=== PATIENT | female | born 1950 | race Caucasian/White ===

== ENCOUNTER 2018-08-06 18:58 | Inpatient (IN) | payer BC ==
[2018-08-06] MEDS ORDERED: ACETAMINOPHEN 325 MG TAB PO (21:00)
[2018-08-06] MEDS ORDERED: ALBUTEROL/IPRATROPIUM (NEB) 3 ML AMP HHN (21:00)
[2018-08-06] MEDS ORDERED: HYDROCODONE/APAP (5/325) TAB PO (21:00)
[2018-08-06] MEDS ORDERED: ONDANSETRON 4 MG INJ IV (21:00)
[2018-08-06] MEDS ORDERED: NACL 0.9% 3 ML SYG IV (21:00)
[2018-08-06] MEDS ORDERED: VANCOMYCIN IV PER PHARMACY XX (21:30)
[2018-08-06] MEDS: SOD CHLORIDE 0.9% 1,000 ML IV (21:30)
[2018-08-06] MEDS: HEPARIN 5,000 UNIT/1 ML VIAL SC (22:59)
[2018-08-06] MEDS ORDERED: GLUCOSE GEL 15 GRAM TUBE PO ×2 (23:00)
[2018-08-06] MEDS ORDERED: DEXTROSE 50% 50 ML SYRINGE IV ×2 (23:00)
[2018-08-06] MEDS ORDERED: GLUCOSE GEL 15 GRAM TUBE BUCCAL (23:00)
[2018-08-06] MEDS ORDERED: GLUCAGON 1 MG INJ IM (23:00)
[2018-08-06] MEDS: INSULIN ASPART [NOVOLOG] 3 ML PEN SC (23:42)
[2018-08-06] MEDS: ACCU-CHEK XX (23:47)
[2018-08-07] MEDS: VANCOMYCIN 750 MG (PMX) 250 ML IVPB ×2 (02:51→15:16)
[2018-08-07 05:31] LABS: ADD MAN DIFF? NO
[2018-08-07 05:34] LABS: WHITE BLOOD COUNT 10.7 10^3/ul (4.8-10.8)
[2018-08-07 05:34] LABS: BASOPHIL # 0.1 10^3/ul (0.0-0.1); BASOPHILS % 0.5 % (0.0-2.0); EOSINOPHILS # 0.3 10^3/ul (0.0-0.5); EOSINOPHILS % 2.6 % (0.0-7.0); HEMOGLOBIN 10.5 g/dl (12.0-16.0); LYMPHOCYTES # 2.6 10^3/ul (0.8-2.9); LYMPHOCYTES % 23.9 % (15.0-51.0); MEAN CORPUSCULAR HEMOGLOBIN 28.5 pg (29.0-33.0); MEAN CORPUSCULAR HGB CONC 31.8 g/dl (32.0-37.0); MEAN CORPUSCULAR VOLUME 89.7 fl (82.0-101.0); MEAN PLATELET VOLUME 9.2 fl (7.4-10.4); MONOCYTES % 9.4 % (0.0-11.0); NEUTROPHIL # 6.8 10^3/ul (1.6-7.5); NEUTROPHILS % 63.2 % (39.0-77.0); PLATELET COUNT 607 10^3/UL (140-415); RED BLOOD COUNT 3.68 10^6/ul (4.20-5.40); RED CELL DISTRIBUTION WIDTH 15.4 % (11.5-14.5)
[2018-08-07 05:52] LABS: ALANINE AMINOTRANSFERASE 10 IU/L (13-69); ALBUMIN 3.7 g/dl (3.3-4.9); ALBUMIN/GLOBULIN RATIO 1.15; ALKALINE PHOSPHATASE 101 IU/L (42-121); ANION GAP 9 (5-13); ASPARTATE AMINO TRANSFERASE 26 IU/L (15-46); BILIRUBIN,INDIRECT 0.3 mg/dl (0-1.1); BILIRUBIN,TOTAL 0.3 mg/dl (0.2-1.3); BLOOD UREA NITROGEN 15 mg/dl (7-20); CALCIUM 9.5 mg/dl (8.4-10.2); CARBON DIOXIDE 23 mmol/L (21-31); CHLORIDE 109 mmol/L (97-110); CHOL/HDL RATIO 2.3 RATIO; CHOLESTEROL 118 mg/dl (100-200); CREATININE 0.93 mg/dl (0.44-1.00); Estimated GFR 60 mL/min (>60); GLUCOSE 167 mg/dl (70-220); HDL CHOLESTEROL 50 mg/dl (35-98); LDL CHOLESTEROL,CALCULATED 44 mg/dl; MAGNESIUM 1.5 mg/dl (1.7-2.5); PHOSPHORUS 3.5 mg/dl (2.5-4.9); POTASSIUM 4.2 mmol/L (3.5-5.1); SODIUM 141 mmol/L (135-144); TOTAL PROTEIN 6.9 g/dl (6.1-8.1); TRIGLYCERIDES 121 mg/dl (0-149)
[2018-08-07] MEDS ORDERED: OCULAR LUBRICANT 3.5 GM OPH OINT BOTH EYES (07:30)
[2018-08-07] MEDS ORDERED: PROPYLENE GLYCOL/PEG 5 ML OPHTH DROPS BOTH EYES ×2 (07:30→09:08)
[2018-08-07] MEDS: INSULIN ASPART [NOVOLOG] 3 ML PEN SC ×5 (07:35→20:29)
[2018-08-07 07:55] LABS: HEMOGLOBIN A1C 6.6 % (0-5.9)
[2018-08-07] MEDS: PANTOPRAZOLE (EC) 40 MG TAB PO (07:56)
[2018-08-07] MEDS: SOD CHLORIDE 0.9% 1,000 ML IV (10:34)
[2018-08-07] MEDS: CEFEPIME 1GM/50 ML (PMX) 50 ML IVPB ×2 (10:53→20:14)
[2018-08-07] MEDS: ASPIRIN (EC) 81 MG TAB PO (10:54)
[2018-08-07] MEDS: CLOPIDOGREL 75 MG TAB PO (10:54)
[2018-08-07] MEDS: METOPROLOL (XL) 25 MG TAB PO ×2 (10:54→20:15)
[2018-08-07] MEDS: FISH OIL 1,000 MG CAP PO (10:55)
[2018-08-07] MEDS: HEPARIN 5,000 UNIT/1 ML VIAL SC (11:16)
[2018-08-07] MEDS ORDERED: ALBUTEROL HFA 8 GM INHALER INH (12:30)
[2018-08-07] MEDS: MAGNESIUM OXIDE 400 MG TAB PO ×2 (12:30→20:14)
[2018-08-07] MEDS: ATORVASTATIN 20 MG TAB PO (20:14)
[2018-08-08] MEDS: ACCU-CHEK XX (02:00)
[2018-08-08 02:27] LABS: VANCOMYCIN,TROUGH 19.7 ug/ml (10.0-20.0)
[2018-08-08] MEDS: LEVOTHYROXINE 50 MCG TAB PO (06:20)
[2018-08-08] MEDS: PANTOPRAZOLE (EC) 40 MG TAB PO (06:23)
[2018-08-08 06:38] LABS: ADD MAN DIFF? NO
[2018-08-08 06:40] LABS: BASOPHILS % 0.5 % (0.0-2.0); EOSINOPHILS # 0.3 10^3/ul (0.0-0.5); EOSINOPHILS % 2.9 % (0.0-7.0); HEMATOCRIT 30.3 % (37.0-47.0); HEMOGLOBIN 9.7 g/dl (12.0-16.0); LYMPHOCYTES # 1.9 10^3/ul (0.8-2.9); LYMPHOCYTES % 21.6 % (15.0-51.0); MEAN CORPUSCULAR VOLUME 90.4 fl (82.0-101.0); MEAN PLATELET VOLUME 9.2 fl (7.4-10.4); MONOCYTE # 1.1 10^3/ul (0.3-0.9); MONOCYTES % 11.9 % (0.0-11.0); NEUTROPHIL # 5.6 10^3/ul (1.6-7.5); NEUTROPHILS % 62.8 % (39.0-77.0); PLATELET COUNT 541 10^3/UL (140-415); RED BLOOD COUNT 3.35 10^6/ul (4.20-5.40); RED CELL DISTRIBUTION WIDTH 15.3 % (11.5-14.5)
[2018-08-08 06:40] LABS: WHITE BLOOD COUNT 8.9 10^3/ul (4.8-10.8)
[2018-08-08 07:05] LABS: IRON 36 ug/dl (35-150)
[2018-08-08 07:14] LABS: % IRON SATURATION 13 % SAT (22-52); INR 0.93; PROTIME 12.6 Sec (11.9-14.9); TOTAL IRON BINDING CAPACITY 280 ug/dl (241-421)
[2018-08-08 07:15] LABS: LIPASE 68 U/L (23-300)
[2018-08-08 07:15] LABS: ALANINE AMINOTRANSFERASE 25 IU/L (13-69); ALBUMIN 3.1 g/dl (3.3-4.9); ALBUMIN/GLOBULIN RATIO 0.96; ALKALINE PHOSPHATASE 94 IU/L (42-121); ANION GAP 9 (5-13); ASPARTATE AMINO TRANSFERASE 32 IU/L (15-46); BILIRUBIN,INDIRECT 0.3 mg/dl (0-1.1); BILIRUBIN,TOTAL 0.3 mg/dl (0.2-1.3); BLOOD UREA NITROGEN 11 mg/dl (7-20); CALCIUM 9.2 mg/dl (8.4-10.2); CARBON DIOXIDE 23 mmol/L (21-31); CHLORIDE 112 mmol/L (97-110); CREATININE 0.83 mg/dl (0.44-1.00); Estimated GFR > 60 mL/min (>60); GLUCOSE 121 mg/dl (70-220); POTASSIUM 4.3 mmol/L (3.5-5.1); SODIUM 144 mmol/L (135-144); TOTAL PROTEIN 6.3 g/dl (6.1-8.1)
[2018-08-08 07:28] LABS: LACTIC ACID 1.1 mmol/L (0.5-2.0)
[2018-08-08] MEDS: INSULIN ASPART [NOVOLOG] 3 ML PEN SC ×4 (07:55→20:27)
[2018-08-08 08:23] LABS: FOLATE > 20.0 ng/ml (2.8-20.0)
[2018-08-08 08:29] LABS: C-REACTIVE PROTEIN 1.8 mg/dl (0.0-0.9)
[2018-08-08] MEDS: VANCOMYCIN 500 MG (PMX) 100 ML IVPB ×2 (08:52→20:43)
[2018-08-08] MEDS: FISH OIL 1,000 MG CAP PO (08:53)
[2018-08-08] MEDS: METOPROLOL (XL) 25 MG TAB PO ×2 (08:53→20:36)
[2018-08-08] MEDS: CLOPIDOGREL 75 MG TAB PO (08:53)
[2018-08-08] MEDS: LACTOBACILLUS RHAMNOSUS CAP PO ×2 (08:54→20:34)
[2018-08-08] MEDS: LISINOPRIL 5 MG TAB PO (08:54)
[2018-08-08] MEDS: ASPIRIN (EC) 81 MG TAB PO (08:54)
[2018-08-08] MEDS: MAGNESIUM OXIDE 400 MG TAB PO ×2 (08:54→20:35)
[2018-08-08] MEDS: ENOXAPARIN 30 MG/0.3 ML SYG SC (08:56)
[2018-08-08] MEDS: CEFEPIME 1GM/50 ML (PMX) 50 ML IVPB (10:28)
[2018-08-08] MEDS: ATORVASTATIN 20 MG TAB PO (20:35)
[2018-08-08] MEDS: HYDROCODONE/APAP (5/325) TAB PO (20:42)
[2018-08-09] MEDS: ACCU-CHEK XX (01:40)
[2018-08-09] MEDS: PANTOPRAZOLE (EC) 40 MG TAB PO (06:10)
[2018-08-09] MEDS: LEVOTHYROXINE 50 MCG TAB PO (06:10)
[2018-08-09] MEDS: INSULIN ASPART [NOVOLOG] 3 ML PEN SC ×2 (08:22→12:00)
[2018-08-09] MEDS: ENOXAPARIN 30 MG/0.3 ML SYG SC (08:22)
[2018-08-09] MEDS: MAGNESIUM OXIDE 400 MG TAB PO (08:25)
[2018-08-09] MEDS: LACTOBACILLUS RHAMNOSUS CAP PO (08:25)
[2018-08-09] MEDS: FISH OIL 1,000 MG CAP PO (08:25)
[2018-08-09] MEDS: ASPIRIN (EC) 81 MG TAB PO (08:25)
[2018-08-09] MEDS: CLOPIDOGREL 75 MG TAB PO (08:25)
[2018-08-09] MEDS: LISINOPRIL 5 MG TAB PO (08:26)
[2018-08-09] MEDS: METOPROLOL (XL) 25 MG TAB PO (08:26)
[2018-08-09] MEDS: VANCOMYCIN 500 MG (PMX) 100 ML IVPB (09:50)
[2018-08-09] MEDS ORDERED: TRIMETHOPRIM/SULFAMETHOX (DS) TAB PO (21:00)
== END 2018-08-09 15:00 | disposition home or self-care (01) | DRG 602 ==
LOC: TEL 08-07 08:22 → MS3 18:58 → PP2 08-08 19:31
PROVIDERS: Internal Medicine
DX: L03.116 Cellulitis of left lower limb (principal); G92 Toxic encephalopathy; I10 Essential (primary) hypertension; E03.9 Hypothyroidism, unspecified; I87.8 Other specified disorders of veins; E11.40 Type 2 diabetes mellitus with diabetic neuropathy, unspecified; E88.81 Metabolic syndrome and other insulin resistance; D64.9 Anemia, unspecified; E11.51 Type 2 diabetes mellitus with diabetic peripheral angiopathy without gangrene; E11.36 Type 2 diabetes mellitus with diabetic cataract; R63.0 Anorexia; T36.8X5A Adverse effect of other systemic antibiotics, initial encounter; Y92.230 Patient room in hospital as the place of occurrence of the external cause; B35.1 Tinea unguium; Z86.73 Personal history of transient ischemic attack (TIA), and cerebral infarction without residual deficits
CPT/HCPCS: 70450; 80053; 80061; 80202; 82746; 82962; 83036; 83540; 83605; 83690; 83735; 84100; 84443; 85025; 85610; 85651; 86140; 93922

== ENCOUNTER 2018-08-30 03:11 | Inpatient (IN) | payer BC ==
[2018-08-30 04:32] LABS: ADD MAN DIFF? NO
[2018-08-30 04:35] LABS: WHITE BLOOD COUNT 10.4 10^3/ul (4.8-10.8)
[2018-08-30 04:35] LABS: BASOPHIL # 0.1 10^3/ul (0.0-0.1); BASOPHILS % 0.6 % (0.0-2.0); EOSINOPHILS # 0.3 10^3/ul (0.0-0.5); EOSINOPHILS % 2.6 % (0.0-7.0); HEMATOCRIT 28.9 % (37.0-47.0); HEMOGLOBIN 9.4 g/dl (12.0-16.0); LYMPHOCYTES # 2.1 10^3/ul (0.8-2.9); LYMPHOCYTES % 19.9 % (15.0-51.0); MEAN CORPUSCULAR HGB CONC 32.5 g/dl (32.0-37.0); MEAN CORPUSCULAR VOLUME 89.2 fl (82.0-101.0); MEAN PLATELET VOLUME 8.8 fl (7.4-10.4); MONOCYTE # 1.1 10^3/ul (0.3-0.9); MONOCYTES % 10.2 % (0.0-11.0); NEUTROPHIL # 6.9 10^3/ul (1.6-7.5); NEUTROPHILS % 66.3 % (39.0-77.0); PLATELET COUNT 581 10^3/UL (140-415); RED BLOOD COUNT 3.24 10^6/ul (4.20-5.40); RED CELL DISTRIBUTION WIDTH 15.2 % (11.5-14.5)
[2018-08-30] MEDS: FUROSEMIDE 20 MG INJ IV ×4 (04:36→17:42)
[2018-08-30] MEDS: morphine 4 MG/ML VIAL IV (04:58)
[2018-08-30] MEDS: ONDANSETRON 4 MG INJ IV (04:58)
[2018-08-30 05:03] LABS: ALANINE AMINOTRANSFERASE 23 IU/L (13-69); ALBUMIN 3.8 g/dl (3.3-4.9); ALKALINE PHOSPHATASE 118 IU/L (42-121); ANION GAP 10 (5-13); ASPARTATE AMINO TRANSFERASE 49 IU/L (15-46); BILIRUBIN,INDIRECT 0.4 mg/dl (0-1.1); BILIRUBIN,TOTAL 0.4 mg/dl (0.2-1.3); BLOOD UREA NITROGEN 28 mg/dl (7-20); C-REACTIVE PROTEIN 2.9 mg/dl (0.0-0.9); CALCIUM 9.5 mg/dl (8.4-10.2); CARBON DIOXIDE 22 mmol/L (21-31); CHLORIDE 105 mmol/L (97-110); Estimated GFR 35 mL/min (>60); GLUCOSE 112 mg/dl (70-220); POTASSIUM 4.7 mmol/L (3.5-5.1); SODIUM 137 mmol/L (135-144); TOTAL PROTEIN 7.6 g/dl (6.1-8.1)
[2018-08-30 05:04] LABS: ADD UMIC NO; UR ASCORBIC ACID NEGATIVE (NEGATIVE); UR BILIRUBIN (Dip) NEGATIVE (NEGATIVE); UR BLOOD (Dip) NEGATIVE (NEGATIVE); UR CLARITY CLEAR (CLEAR); UR COLOR STRAW (YELLOW); UR GLUCOSE (Dip) NEGATIVE (NEGATIVE); UR KETONES (Dip) NEGATIVE (NEGATIVE); UR LEUKOCYTE ESTERASE (Dip) NEGATIVE Leu/ul (NEGATIVE); UR NITRITE (Dip) NEGATIVE (NEGATIVE); UR SPECIFIC GRAVITY (Dip) 1.006 (1.003-1.030); UR TOTAL PROTEIN (Dip) NEGATIVE (NEGATIVE); UR UROBILINOGEN (Dip) NEGATIVE (NEGATIVE)
[2018-08-30 05:12] LABS: B-TYPE NATRIURETIC PEPTIDE 1260 PG/ML (0-125); TROPONIN-I < 0.012 ng/ml (0.000-0.120)
[2018-08-30 05:38] LABS: ERYTHROCYTE SEDIMENTATION RATE 75 mm/Hr (0-30)
[2018-08-30] MEDS: PANTOPRAZOLE (EC) 40 MG TAB PO (06:30)
[2018-08-30] MEDS ORDERED: GLUCAGON 1 MG INJ IM (07:00)
[2018-08-30] MEDS ORDERED: DEXTROSE 50% 50 ML SYRINGE IV (07:00)
[2018-08-30] MEDS ORDERED: GLUCOSE GEL 15 GRAM TUBE BUCCAL (07:00)
[2018-08-30] MEDS ORDERED: GLUCOSE GEL 15 GRAM TUBE PO ×2 (07:00)
[2018-08-30] MEDS ORDERED: OCULAR LUBRICANT 3.5 GM OPH OINT BOTH EYES (08:00)
[2018-08-30] MEDS ORDERED: PROPYLENE GLYCOL/PEG 5 ML OPHTH DROPS BOTH EYES (08:00)
[2018-08-30] MEDS ORDERED: ALBUTEROL HFA 8 GM INHALER INH (09:00)
[2018-08-30] MEDS: CLOPIDOGREL 75 MG TAB PO (09:43)
[2018-08-30] MEDS: ASPIRIN (EC) 81 MG TAB PO (09:43)
[2018-08-30] MEDS: LEVOTHYROXINE 50 MCG TAB PO (09:43)
[2018-08-30] MEDS: INSULIN ASPART [NOVOLOG] 3 ML PEN SC ×4 (09:51→20:28)
[2018-08-30] MEDS: ENOXAPARIN 30 MG/0.3 ML SYG SC (09:51)
[2018-08-30] MEDS: METOPROLOL (XL) 25 MG TAB PO ×2 (10:01→20:28)
[2018-08-30] MEDS: CYANOCOBALAMIN 100 MCG TAB PO (10:01)
[2018-08-30] MEDS: LORAZEPAM 2 MG INJ IV (12:30)
[2018-08-30] MEDS: POLYETHYLENE GLYCOL 17 GM PACKET PO (13:25)
[2018-08-30] MEDS: ATORVASTATIN 20 MG TAB PO (20:32)
[2018-08-30] MEDS: ALPRAZOLAM 0.25 MG TAB PO (20:32)
[2018-08-31] MEDS: ACCU-CHEK XX (01:01)
[2018-08-31] MEDS: PANTOPRAZOLE (EC) 40 MG TAB PO (05:36)
[2018-08-31] MEDS: FUROSEMIDE 20 MG INJ IV ×2 (05:36→17:05)
[2018-08-31] MEDS: LEVOTHYROXINE 50 MCG TAB PO (06:08)
[2018-08-31 06:42] LABS: ADD MAN DIFF? NO
[2018-08-31 06:50] LABS: BASOPHIL # 0.1 10^3/ul (0.0-0.1); BASOPHILS % 0.8 % (0.0-2.0); EOSINOPHILS # 0.3 10^3/ul (0.0-0.5); HEMATOCRIT 31.5 % (37.0-47.0); HEMOGLOBIN 9.8 g/dl (12.0-16.0); LYMPHOCYTES # 1.7 10^3/ul (0.8-2.9); LYMPHOCYTES % 21.4 % (15.0-51.0); MEAN CORPUSCULAR HGB CONC 31.1 g/dl (32.0-37.0); MEAN PLATELET VOLUME 9.1 fl (7.4-10.4); MONOCYTE # 0.9 10^3/ul (0.3-0.9); MONOCYTES % 10.8 % (0.0-11.0); NEUTROPHILS % 62.6 % (39.0-77.0); PLATELET COUNT 668 10^3/UL (140-415); RED CELL DISTRIBUTION WIDTH 15.2 % (11.5-14.5)
[2018-08-31 07:11] LABS: ALANINE AMINOTRANSFERASE 18 IU/L (13-69); ALBUMIN 3.6 g/dl (3.3-4.9); ALBUMIN/GLOBULIN RATIO 1.05; ALKALINE PHOSPHATASE 109 IU/L (42-121); ANION GAP 7 (5-13); ASPARTATE AMINO TRANSFERASE 44 IU/L (15-46); BILIRUBIN,INDIRECT 0.4 mg/dl (0-1.1); BILIRUBIN,TOTAL 0.4 mg/dl (0.2-1.3); BLOOD UREA NITROGEN 26 mg/dl (7-20); CALCIUM 9.8 mg/dl (8.4-10.2); CARBON DIOXIDE 26 mmol/L (21-31); CHLORIDE 106 mmol/L (97-110); Estimated GFR 37 mL/min (>60); GLUCOSE 105 mg/dl (70-220); MAGNESIUM 1.9 mg/dl (1.7-2.5); PHOSPHORUS 5.1 mg/dl (2.5-4.9); POTASSIUM 5.1 mmol/L (3.5-5.1); SODIUM 139 mmol/L (135-144)
[2018-08-31 07:21] LABS: HEMOGLOBIN A1C 6.3 % (0-5.9)
[2018-08-31] MEDS: INSULIN ASPART [NOVOLOG] 3 ML PEN SC ×4 (07:48→20:34)
[2018-08-31] MEDS: CYANOCOBALAMIN 100 MCG TAB PO (08:31)
[2018-08-31] MEDS: METOPROLOL (XL) 25 MG TAB PO ×2 (08:31→20:35)
[2018-08-31] MEDS: ASPIRIN (EC) 81 MG TAB PO (08:31)
[2018-08-31] MEDS: POLYETHYLENE GLYCOL 17 GM PACKET PO (08:31)
[2018-08-31] MEDS: CLOPIDOGREL 75 MG TAB PO (08:31)
[2018-08-31] MEDS: ENOXAPARIN 30 MG/0.3 ML SYG SC (08:33)
[2018-08-31] MEDS: ATORVASTATIN 20 MG TAB PO (20:34)
[2018-08-31] MEDS: ALPRAZOLAM 0.25 MG TAB PO (21:57)
[2018-09-01] MEDS: ACCU-CHEK XX (01:16)
[2018-09-01] MEDS: ZOLPIDEM 5 MG TAB PO (02:57)
[2018-09-01 05:48] LABS: ADD MAN DIFF? NO
[2018-09-01 05:55] LABS: BASOPHILS % 0.3 % (0.0-2.0); EOSINOPHILS # 0.2 10^3/ul (0.0-0.5); EOSINOPHILS % 1.9 % (0.0-7.0); HEMATOCRIT 32.2 % (37.0-47.0); HEMOGLOBIN 10.4 g/dl (12.0-16.0); LYMPHOCYTES # 2.1 10^3/ul (0.8-2.9); MEAN CORPUSCULAR HEMOGLOBIN 28.5 pg (29.0-33.0); MEAN CORPUSCULAR HGB CONC 32.3 g/dl (32.0-37.0); MEAN CORPUSCULAR VOLUME 88.2 fl (82.0-101.0); MEAN PLATELET VOLUME 9.1 fl (7.4-10.4); MONOCYTE # 0.9 10^3/ul (0.3-0.9); MONOCYTES % 9.7 % (0.0-11.0); NEUTROPHIL # 5.6 10^3/ul (1.6-7.5); NEUTROPHILS % 63.8 % (39.0-77.0); PLATELET COUNT 680 10^3/UL (140-415); RED BLOOD COUNT 3.65 10^6/ul (4.20-5.40); RED CELL DISTRIBUTION WIDTH 14.9 % (11.5-14.5)
[2018-09-01 05:55] LABS: WHITE BLOOD COUNT 8.9 10^3/ul (4.8-10.8)
[2018-09-01] MEDS: PANTOPRAZOLE (EC) 40 MG TAB PO (06:22)
[2018-09-01] MEDS: LEVOTHYROXINE 50 MCG TAB PO (06:22)
[2018-09-01] MEDS: FUROSEMIDE 20 MG INJ IV ×2 (06:23→17:17)
[2018-09-01 06:32] LABS: ANION GAP 12 (5-13); BLOOD UREA NITROGEN 28 mg/dl (7-20); CARBON DIOXIDE 22 mmol/L (21-31); CHLORIDE 104 mmol/L (97-110); CREATININE 1.41 mg/dl (0.44-1.00); Estimated GFR 37 mL/min (>60); GLUCOSE 143 mg/dl (70-220); POTASSIUM 4.5 mmol/L (3.5-5.1); SODIUM 138 mmol/L (135-144)
[2018-09-01] MEDS: INSULIN ASPART [NOVOLOG] 3 ML PEN SC ×4 (08:00→21:00)
[2018-09-01] MEDS: ASPIRIN (EC) 81 MG TAB PO (08:35)
[2018-09-01] MEDS: CLOPIDOGREL 75 MG TAB PO (08:35)
[2018-09-01] MEDS: METOPROLOL (XL) 25 MG TAB PO ×2 (08:36→21:33)
[2018-09-01] MEDS: CYANOCOBALAMIN 100 MCG TAB PO (08:36)
[2018-09-01] MEDS: POLYETHYLENE GLYCOL 17 GM PACKET PO (08:37)
[2018-09-01] MEDS: ENOXAPARIN 30 MG/0.3 ML SYG SC (08:40)
[2018-09-01] MEDS: ACETAMINOPHEN 325 MG TAB PO (17:25)
[2018-09-01] MEDS: MAGNESIUM HYDROXIDE 30ML CUP PO (21:28)
[2018-09-01] MEDS: ATORVASTATIN 20 MG TAB PO (21:28)
[2018-09-01] MEDS: DOCUSATE SODIUM 100 MG CAP PO (21:29)
[2018-09-01] MEDS: DIPHENHYDRAMINE 25 MG CAP PO (21:29)
[2018-09-01] MEDS: ALPRAZOLAM 0.25 MG TAB PO (21:29)
[2018-09-02] MEDS: ACCU-CHEK XX (01:13)
[2018-09-02] MEDS: FUROSEMIDE 20 MG INJ IV ×2 (05:34→18:00)
[2018-09-02] MEDS: PANTOPRAZOLE (EC) 40 MG TAB PO (05:35)
[2018-09-02] MEDS: LEVOTHYROXINE 50 MCG TAB PO (05:35)
[2018-09-02 05:57] LABS: ADD MAN DIFF? NO
[2018-09-02 06:01] LABS: BASOPHILS % 0.2 % (0.0-2.0); EOSINOPHILS % 0.1 % (0.0-7.0); HEMATOCRIT 26.7 % (37.0-47.0); HEMOGLOBIN 8.9 g/dl (12.0-16.0); LYMPHOCYTES # 1.6 10^3/ul (0.8-2.9); LYMPHOCYTES % 10.3 % (15.0-51.0); MEAN CORPUSCULAR HEMOGLOBIN 29.2 pg (29.0-33.0); MEAN CORPUSCULAR HGB CONC 33.3 g/dl (32.0-37.0); MEAN CORPUSCULAR VOLUME 87.5 fl (82.0-101.0); MEAN PLATELET VOLUME 9.3 fl (7.4-10.4); MONOCYTE # 1.4 10^3/ul (0.3-0.9); MONOCYTES % 9.1 % (0.0-11.0); NEUTROPHIL # 11.9 10^3/ul (1.6-7.5); NEUTROPHILS % 79.8 % (39.0-77.0); PLATELET COUNT 605 10^3/UL (140-415); RED BLOOD COUNT 3.05 10^6/ul (4.20-5.40); RED CELL DISTRIBUTION WIDTH 15.2 % (11.5-14.5)
[2018-09-02 06:30] LABS: ANION GAP 10 (5-13); BLOOD UREA NITROGEN 33 mg/dl (7-20); CALCIUM 9.4 mg/dl (8.4-10.2); CARBON DIOXIDE 23 mmol/L (21-31); CHLORIDE 105 mmol/L (97-110); CREATININE 1.32 mg/dl (0.44-1.00); Estimated GFR 40 mL/min (>60); GLUCOSE 175 mg/dl (70-220); POTASSIUM 4.3 mmol/L (3.5-5.1); SODIUM 138 mmol/L (135-144)
[2018-09-02] MEDS: INSULIN ASPART [NOVOLOG] 3 ML PEN SC ×4 (08:53→20:55)
[2018-09-02] MEDS: ENOXAPARIN 30 MG/0.3 ML SYG SC (08:53)
[2018-09-02] MEDS: METOPROLOL (XL) 25 MG TAB PO ×2 (08:54→20:54)
[2018-09-02] MEDS: DOCUSATE SODIUM 100 MG CAP PO ×2 (08:54→20:54)
[2018-09-02] MEDS: CLOPIDOGREL 75 MG TAB PO (08:54)
[2018-09-02] MEDS: ASPIRIN (EC) 81 MG TAB PO (08:54)
[2018-09-02] MEDS: CYANOCOBALAMIN 100 MCG TAB PO (08:55)
[2018-09-02] MEDS: POLYETHYLENE GLYCOL 17 GM PACKET PO (08:56)
[2018-09-02] MEDS: ATORVASTATIN 20 MG TAB PO (20:54)
[2018-09-02] MEDS: ALPRAZOLAM 0.25 MG TAB PO (21:01)
[2018-09-03] MEDS: ACCU-CHEK XX (01:45)
[2018-09-03] MEDS: PANTOPRAZOLE (EC) 40 MG TAB PO (06:14)
[2018-09-03] MEDS: LEVOTHYROXINE 50 MCG TAB PO (06:14)
[2018-09-03] MEDS: FUROSEMIDE 20 MG INJ IV (06:15)
[2018-09-03] MEDS: POLYETHYLENE GLYCOL 17 GM PACKET PO (08:47)
[2018-09-03] MEDS: CLOPIDOGREL 75 MG TAB PO (08:48)
[2018-09-03] MEDS: METOPROLOL (XL) 25 MG TAB PO ×2 (08:48→21:00)
[2018-09-03] MEDS: CYANOCOBALAMIN 100 MCG TAB PO (08:48)
[2018-09-03] MEDS: DOCUSATE SODIUM 100 MG CAP PO ×2 (08:48→21:00)
[2018-09-03] MEDS: ASPIRIN (EC) 81 MG TAB PO (08:48)
[2018-09-03] MEDS: INSULIN ASPART [NOVOLOG] 3 ML PEN SC ×4 (08:50→21:19)
[2018-09-03] MEDS: ENOXAPARIN 30 MG/0.3 ML SYG SC (08:52)
[2018-09-03] MEDS: ACETAMINOPHEN 325 MG TAB PO ×2 (11:53→21:17)
[2018-09-03] MEDS: ONDANSETRON 4 MG INJ IV (19:33)
[2018-09-03] MEDS: ZOLPIDEM 5 MG TAB PO (21:17)
[2018-09-03] MEDS: ATORVASTATIN 20 MG TAB PO (21:17)
[2018-09-04] MEDS: ACCU-CHEK XX (02:00)
[2018-09-04] MEDS: ALPRAZOLAM 0.25 MG TAB PO ×2 (03:13→22:03)
[2018-09-04 05:37] LABS: ADD MAN DIFF? NO
[2018-09-04 05:45] LABS: WHITE BLOOD COUNT 10.5 10^3/ul (4.8-10.8)
[2018-09-04 05:45] LABS: BASOPHILS % 0.4 % (0.0-2.0); EOSINOPHILS # 0.2 10^3/ul (0.0-0.5); EOSINOPHILS % 1.8 % (0.0-7.0); HEMATOCRIT 23.9 % (37.0-47.0); HEMOGLOBIN 7.9 g/dl (12.0-16.0); LYMPHOCYTES # 2.3 10^3/ul (0.8-2.9); LYMPHOCYTES % 22.1 % (15.0-51.0); MEAN CORPUSCULAR HEMOGLOBIN 28.6 pg (29.0-33.0); MEAN CORPUSCULAR HGB CONC 33.1 g/dl (32.0-37.0); MEAN CORPUSCULAR VOLUME 86.6 fl (82.0-101.0); MEAN PLATELET VOLUME 9.3 fl (7.4-10.4); MONOCYTE # 1.4 10^3/ul (0.3-0.9); MONOCYTES % 13.3 % (0.0-11.0); NEUTROPHIL # 6.5 10^3/ul (1.6-7.5); NEUTROPHILS % 61.8 % (39.0-77.0); PLATELET COUNT 584 10^3/UL (140-415); RED BLOOD COUNT 2.76 10^6/ul (4.20-5.40); RED CELL DISTRIBUTION WIDTH 15.4 % (11.5-14.5)
[2018-09-04 06:10] LABS: ANION GAP 8 (5-13); BLOOD UREA NITROGEN 37 mg/dl (7-20); CARBON DIOXIDE 21 mmol/L (21-31); CHLORIDE 107 mmol/L (97-110); CREATININE 1.27 mg/dl (0.44-1.00); Estimated GFR 42 mL/min (>60); GLUCOSE 142 mg/dl (70-220); POTASSIUM 4.3 mmol/L (3.5-5.1); SODIUM 136 mmol/L (135-144)
[2018-09-04] MEDS: PANTOPRAZOLE (EC) 40 MG TAB PO (06:26)
[2018-09-04] MEDS: LEVOTHYROXINE 50 MCG TAB PO (06:26)
[2018-09-04 07:27] LABS: ADD UMIC NO; UR ASCORBIC ACID 40 mg/dL (NEGATIVE); UR BILIRUBIN (Dip) NEGATIVE (NEGATIVE); UR BLOOD (Dip) NEGATIVE (NEGATIVE); UR CLARITY CLEAR (CLEAR); UR COLOR YELLOW (YELLOW); UR GLUCOSE (Dip) NEGATIVE (NEGATIVE); UR KETONES (Dip) TRACE mg/dL (NEGATIVE); UR LEUKOCYTE ESTERASE (Dip) NEGATIVE Leu/ul (NEGATIVE); UR NITRITE (Dip) NEGATIVE (NEGATIVE); UR SPECIFIC GRAVITY (Dip) 1.016 (1.003-1.030); UR TOTAL PROTEIN (Dip) NEGATIVE (NEGATIVE); UR UROBILINOGEN (Dip) 1+ mg/dL (NEGATIVE)
[2018-09-04 07:42] LABS: SODIUM,URINE RANDOM 67 mmol/L (30-90)
[2018-09-04 07:42] LABS: CREATININE,URINE RANDOM 71.78 mg/dl (20-320)
[2018-09-04] MEDS: POLYETHYLENE GLYCOL 17 GM PACKET PO (08:33)
[2018-09-04] MEDS: ENOXAPARIN 30 MG/0.3 ML SYG SC (08:35)
[2018-09-04] MEDS: INSULIN ASPART [NOVOLOG] 3 ML PEN SC ×4 (08:35→21:00)
[2018-09-04] MEDS: DOCUSATE SODIUM 100 MG CAP PO ×2 (08:36→21:57)
[2018-09-04] MEDS: CLOPIDOGREL 75 MG TAB PO (08:36)
[2018-09-04] MEDS: ASPIRIN (EC) 81 MG TAB PO (08:36)
[2018-09-04] MEDS: CYANOCOBALAMIN 100 MCG TAB PO (08:36)
[2018-09-04] MEDS: METOPROLOL (XL) 25 MG TAB PO ×2 (08:37→21:58)
[2018-09-04] MEDS: FUROSEMIDE 20 MG INJ IV (08:38)
[2018-09-04] MEDS: AL HYDROX/MG HYDROX/SIMETH 30 ML CUP PO (17:33)
[2018-09-04] MEDS: ATORVASTATIN 20 MG TAB PO (21:57)
[2018-09-05] MEDS: ACCU-CHEK XX (02:00)
[2018-09-05] MEDS: PANTOPRAZOLE (EC) 40 MG TAB PO (05:30)
[2018-09-05] MEDS: LEVOTHYROXINE 50 MCG TAB PO (05:31)
[2018-09-05 05:36] LABS: ADD MAN DIFF? NO
[2018-09-05 05:45] LABS: BASOPHILS % 0.3 % (0.0-2.0); EOSINOPHILS # 0.1 10^3/ul (0.0-0.5); EOSINOPHILS % 1.3 % (0.0-7.0); HEMATOCRIT 27.2 % (37.0-47.0); HEMOGLOBIN 8.8 g/dl (12.0-16.0); LYMPHOCYTES # 2.2 10^3/ul (0.8-2.9); LYMPHOCYTES % 19.8 % (15.0-51.0); MEAN CORPUSCULAR HEMOGLOBIN 28.5 pg (29.0-33.0); MEAN CORPUSCULAR HGB CONC 32.4 g/dl (32.0-37.0); MEAN PLATELET VOLUME 9.4 fl (7.4-10.4); MONOCYTE # 1.3 10^3/ul (0.3-0.9); MONOCYTES % 11.6 % (0.0-11.0); NEUTROPHIL # 7.3 10^3/ul (1.6-7.5); NEUTROPHILS % 66.5 % (39.0-77.0); PLATELET COUNT 662 10^3/UL (140-415); RED BLOOD COUNT 3.09 10^6/ul (4.20-5.40); RED CELL DISTRIBUTION WIDTH 15.7 % (11.5-14.5)
[2018-09-05 06:32] LABS: ANION GAP 9 (5-13); BLOOD UREA NITROGEN 40 mg/dl (7-20); CARBON DIOXIDE 24 mmol/L (21-31); CHLORIDE 104 mmol/L (97-110); CREATININE 1.45 mg/dl (0.44-1.00); Estimated GFR 36 mL/min (>60); GLUCOSE 140 mg/dl (70-220); POTASSIUM 4.4 mmol/L (3.5-5.1); SODIUM 137 mmol/L (135-144)
[2018-09-05] MEDS: FUROSEMIDE 20 MG INJ IV (08:23)
[2018-09-05] MEDS: ASPIRIN (EC) 81 MG TAB PO (08:23)
[2018-09-05] MEDS: DOCUSATE SODIUM 100 MG CAP PO ×2 (08:23→20:32)
[2018-09-05] MEDS: CLOPIDOGREL 75 MG TAB PO (08:24)
[2018-09-05] MEDS: CYANOCOBALAMIN 100 MCG TAB PO (08:24)
[2018-09-05] MEDS: POLYETHYLENE GLYCOL 17 GM PACKET PO (08:24)
[2018-09-05] MEDS: METOPROLOL (XL) 25 MG TAB PO ×2 (08:24→20:41)
[2018-09-05] MEDS: INSULIN ASPART [NOVOLOG] 3 ML PEN SC ×4 (08:25→22:22)
[2018-09-05] MEDS: ENOXAPARIN 30 MG/0.3 ML SYG SC (08:26)
[2018-09-05] MEDS: ACETAMINOPHEN 325 MG TAB PO ×2 (12:11→20:51)
[2018-09-05] MEDS: AL HYDROX/MG HYDROX/SIMETH 30 ML CUP PO (20:31)
[2018-09-05] MEDS: ATORVASTATIN 20 MG TAB PO (20:32)
[2018-09-05] MEDS: ALPRAZOLAM 0.25 MG TAB PO (20:38)
[2018-09-05] MEDS: METOCLOPRAMIDE 10 MG INJ IV (22:25)
[2018-09-06] MEDS: ACCU-CHEK XX (02:00)
[2018-09-06 05:25] LABS: ADD MAN DIFF? NO
[2018-09-06 05:38] LABS: ABNORMAL IP MESSAGE 1; BASOPHILS % 0.3 % (0.0-2.0); EOSINOPHILS # 0.2 10^3/ul (0.0-0.5); EOSINOPHILS % 1.3 % (0.0-7.0); HEMATOCRIT 24.8 % (37.0-47.0); HEMOGLOBIN 8.2 g/dl (12.0-16.0); LYMPHOCYTES # 3.2 10^3/ul (0.8-2.9); LYMPHOCYTES % 23.2 % (15.0-51.0); MEAN CORPUSCULAR HEMOGLOBIN 28.6 pg (29.0-33.0); MEAN CORPUSCULAR HGB CONC 33.1 g/dl (32.0-37.0); MEAN CORPUSCULAR VOLUME 86.4 fl (82.0-101.0); MEAN PLATELET VOLUME 9.6 fl (7.4-10.4); MONOCYTES % 14.5 % (0.0-11.0); NEUTROPHIL # 8.2 10^3/ul (1.6-7.5); PLATELET COUNT 621 10^3/UL (140-415); RED BLOOD COUNT 2.87 10^6/ul (4.20-5.40); RED CELL DISTRIBUTION WIDTH 15.5 % (11.5-14.5)
[2018-09-06 05:38] LABS: WHITE BLOOD COUNT 13.7 10^3/ul (4.8-10.8)
[2018-09-06 05:57] LABS: POSITIVE DIFF @See below
[2018-09-06] MEDS: PANTOPRAZOLE (EC) 40 MG TAB PO (06:00)
[2018-09-06 06:16] LABS: ANION GAP 8 (5-13); BLOOD UREA NITROGEN 47 mg/dl (7-20); CALCIUM 8.7 mg/dl (8.4-10.2); CARBON DIOXIDE 28 mmol/L (21-31); CHLORIDE 99 mmol/L (97-110); CREATININE 1.72 mg/dl (0.44-1.00); Estimated GFR 29 mL/min (>60); GLUCOSE 118 mg/dl (70-220); POTASSIUM 3.7 mmol/L (3.5-5.1); SODIUM 135 mmol/L (135-144)
[2018-09-06] MEDS: INSULIN ASPART [NOVOLOG] 3 ML PEN SC ×4 (08:00→21:00)
[2018-09-06] MEDS: POLYETHYLENE GLYCOL 17 GM PACKET PO (08:09)
[2018-09-06] MEDS: CLOPIDOGREL 75 MG TAB PO (08:09)
[2018-09-06] MEDS: DOCUSATE SODIUM 100 MG CAP PO ×2 (08:09→21:17)
[2018-09-06] MEDS: LEVOTHYROXINE 50 MCG TAB PO (08:10)
[2018-09-06] MEDS: CYANOCOBALAMIN 100 MCG TAB PO (08:10)
[2018-09-06] MEDS: METOPROLOL (XL) 25 MG TAB PO ×2 (08:10→21:17)
[2018-09-06] MEDS: ASPIRIN (EC) 81 MG TAB PO (08:10)
[2018-09-06] MEDS: ENOXAPARIN 30 MG/0.3 ML SYG SC (08:18)
[2018-09-06] MEDS: NACL 0.9% 3 ML SYG IV (09:07)
[2018-09-06] MEDS: SOD CHLORIDE 0.9% 1,000 ML IV (09:07)
[2018-09-06 09:59] LABS: CARCINOEMBRYONIC ANTIGEN 3.9 ng/ml (0.0-5.0)
[2018-09-06] MEDS: ACETAMINOPHEN 325 MG TAB PO (21:17)
[2018-09-06] MEDS: ATORVASTATIN 20 MG TAB PO (21:17)
[2018-09-07] MEDS: ACCU-CHEK XX (01:37)
[2018-09-07 05:49] LABS: ADD MAN DIFF? NO
[2018-09-07] MEDS: PANTOPRAZOLE (EC) 40 MG TAB PO (05:51)
[2018-09-07] MEDS: SOD CHLORIDE 0.9% 1,000 ML IV (05:52)
[2018-09-07 05:58] LABS: ABNORMAL IP MESSAGE 1; BASOPHILS % 0.3 % (0.0-2.0); EOSINOPHILS # 0.1 10^3/ul (0.0-0.5); EOSINOPHILS % 0.8 % (0.0-7.0); HEMATOCRIT 27.8 % (37.0-47.0); LYMPHOCYTES # 2.5 10^3/ul (0.8-2.9); LYMPHOCYTES % 16.9 % (15.0-51.0); MEAN CORPUSCULAR HGB CONC 32.4 g/dl (32.0-37.0); MEAN CORPUSCULAR VOLUME 86.6 fl (82.0-101.0); MEAN PLATELET VOLUME 9.2 fl (7.4-10.4); MONOCYTE # 1.7 10^3/ul (0.3-0.9); MONOCYTES % 11.6 % (0.0-11.0); NEUTROPHIL # 10.1 10^3/ul (1.6-7.5); NEUTROPHILS % 69.8 % (39.0-77.0); PLATELET COUNT 705 10^3/UL (140-415); RED BLOOD COUNT 3.21 10^6/ul (4.20-5.40); RED CELL DISTRIBUTION WIDTH 15.5 % (11.5-14.5)
[2018-09-07 05:58] LABS: WHITE BLOOD COUNT 14.5 10^3/ul (4.8-10.8)
[2018-09-07 06:03] LABS: POSITIVE DIFF @See below
[2018-09-07 06:25] LABS: ANION GAP 10 (5-13); BLOOD UREA NITROGEN 42 mg/dl (7-20); CALCIUM 8.6 mg/dl (8.4-10.2); CARBON DIOXIDE 24 mmol/L (21-31); CHLORIDE 102 mmol/L (97-110); CREATININE 1.15 mg/dl (0.44-1.00); Estimated GFR 47 mL/min (>60); GLUCOSE 160 mg/dl (70-220); POTASSIUM 3.2 mmol/L (3.5-5.1); SODIUM 136 mmol/L (135-144)
[2018-09-07] MEDS: LEVOTHYROXINE 50 MCG TAB PO (06:36)
[2018-09-07] MEDS: INSULIN ASPART [NOVOLOG] 3 ML PEN SC ×5 (08:17→20:47)
[2018-09-07] MEDS: POLYETHYLENE GLYCOL 17 GM PACKET PO ×2 (09:00→09:28)
[2018-09-07] MEDS: METOPROLOL (XL) 25 MG TAB PO ×2 (09:00→20:44)
[2018-09-07] MEDS: ASPIRIN (EC) 81 MG TAB PO (09:27)
[2018-09-07] MEDS: DOCUSATE SODIUM 100 MG CAP PO ×2 (09:28→20:44)
[2018-09-07] MEDS: CYANOCOBALAMIN 100 MCG TAB PO (09:28)
[2018-09-07] MEDS: CLOPIDOGREL 75 MG TAB PO (09:29)
[2018-09-07] MEDS: POTASSIUM CHLORIDE (SR) 20 MEQ TAB PO (09:30)
[2018-09-07] MEDS: ENOXAPARIN 30 MG/0.3 ML SYG SC (09:32)
[2018-09-07 14:57] LABS: CREATININE, RANDOM URINE 71 mg/dL (20-275); MICROALBUMIN 4.1 mg/dL; MICROALBUMIN/CREATININE RATIO 58 (<30)
[2018-09-07] MEDS: ATORVASTATIN 20 MG TAB PO (20:44)
[2018-09-07] MEDS: ALPRAZOLAM 0.25 MG TAB PO (20:54)
[2018-09-07] MEDS: ZOLPIDEM 5 MG TAB PO (22:48)
[2018-09-08] MEDS ORDERED: INSULIN ASPART [NOVOLOG] 3 ML PEN SC ×2 (01:00→21:00)
[2018-09-08] MEDS: INSULIN ASPART [NOVOLOG] 3 ML PEN SC ×5 (01:00→17:00)
[2018-09-08] MEDS: SOD CHLORIDE 0.9% 1,000 ML IV (01:13)
[2018-09-08] MEDS: ACCU-CHEK XX (01:36)
[2018-09-08] MEDS: LEVOTHYROXINE 50 MCG TAB PO (05:22)
[2018-09-08] MEDS: PANTOPRAZOLE (EC) 40 MG TAB PO (05:22)
[2018-09-08 07:49] LABS: ADD MAN DIFF? NO
[2018-09-08 07:53] LABS: BASOPHILS % 0.4 % (0.0-2.0); EOSINOPHILS # 0.1 10^3/ul (0.0-0.5); EOSINOPHILS % 1.3 % (0.0-7.0); HEMATOCRIT 24.5 % (37.0-47.0); LYMPHOCYTES % 18.5 % (15.0-51.0); MEAN CORPUSCULAR HGB CONC 32.7 g/dl (32.0-37.0); MEAN CORPUSCULAR VOLUME 88.8 fl (82.0-101.0); MEAN PLATELET VOLUME 9.1 fl (7.4-10.4); MONOCYTE # 1.3 10^3/ul (0.3-0.9); MONOCYTES % 11.7 % (0.0-11.0); NEUTROPHIL # 7.4 10^3/ul (1.6-7.5); NEUTROPHILS % 67.5 % (39.0-77.0); PLATELET COUNT 658 10^3/UL (140-415); RED BLOOD COUNT 2.76 10^6/ul (4.20-5.40); RED CELL DISTRIBUTION WIDTH 15.5 % (11.5-14.5)
[2018-09-08 08:14] LABS: ANION GAP 8 (5-13); BLOOD UREA NITROGEN 42 mg/dl (7-20); CALCIUM 8.5 mg/dl (8.4-10.2); CARBON DIOXIDE 21 mmol/L (21-31); CHLORIDE 106 mmol/L (97-110); CREATININE 1.01 mg/dl (0.44-1.00); Estimated GFR 54 mL/min (>60); GLUCOSE 171 mg/dl (70-220); POTASSIUM 3.6 mmol/L (3.5-5.1); SODIUM 135 mmol/L (135-144)
[2018-09-08] MEDS: CLOPIDOGREL 75 MG TAB PO (08:38)
[2018-09-08] MEDS: ASPIRIN (EC) 81 MG TAB PO (08:38)
[2018-09-08] MEDS: METOPROLOL (XL) 25 MG TAB PO ×2 (08:38→20:43)
[2018-09-08] MEDS: DOCUSATE SODIUM 100 MG CAP PO ×2 (08:38→20:42)
[2018-09-08] MEDS: POLYETHYLENE GLYCOL 17 GM PACKET PO (08:39)
[2018-09-08] MEDS: ENOXAPARIN 30 MG/0.3 ML SYG SC (08:40)
[2018-09-08] MEDS: CYANOCOBALAMIN 100 MCG TAB PO (09:00)
[2018-09-08] MEDS: ATORVASTATIN 20 MG TAB PO (20:42)
[2018-09-08] MEDS: traZODone 50 MG TAB PO (20:42)
[2018-09-08] MEDS: Insulin NOVOLOG SS MODERATE Algorithm (SS with meals and bedtime) SC (20:45)
[2018-09-08] MEDS: ACETAMINOPHEN 325 MG TAB PO (21:26)
[2018-09-08] MEDS: ALPRAZOLAM 0.25 MG TAB PO (22:23)
[2018-09-09] MEDS: ACCU-CHEK XX (01:59)
[2018-09-09] MEDS: PANTOPRAZOLE (EC) 40 MG TAB PO (06:14)
[2018-09-09] MEDS: LEVOTHYROXINE 50 MCG TAB PO (06:14)
[2018-09-09] MEDS: CLOPIDOGREL 75 MG TAB PO (08:25)
[2018-09-09] MEDS: ASPIRIN (EC) 81 MG TAB PO (08:25)
[2018-09-09] MEDS: DOCUSATE SODIUM 100 MG CAP PO ×2 (08:25→20:48)
[2018-09-09] MEDS: METOPROLOL (XL) 25 MG TAB PO ×2 (08:26→20:48)
[2018-09-09] MEDS: CYANOCOBALAMIN 100 MCG TAB PO (08:26)
[2018-09-09] MEDS: ENOXAPARIN 30 MG/0.3 ML SYG SC (08:28)
[2018-09-09] MEDS: Insulin NOVOLOG SS MODERATE Algorithm (SS with meals and bedtime) SC (08:30)
[2018-09-09] MEDS: POLYETHYLENE GLYCOL 17 GM PACKET PO (08:36)
[2018-09-09 09:24] LABS: ADD MAN DIFF? NO
[2018-09-09 09:25] LABS: BASOPHILS % 0.4 % (0.0-2.0); EOSINOPHILS # 0.2 10^3/ul (0.0-0.5); EOSINOPHILS % 1.8 % (0.0-7.0); HEMATOCRIT 27.2 % (37.0-47.0); HEMOGLOBIN 8.6 g/dl (12.0-16.0); LYMPHOCYTES # 2.2 10^3/ul (0.8-2.9); LYMPHOCYTES % 20.2 % (15.0-51.0); MEAN CORPUSCULAR HEMOGLOBIN 27.9 pg (29.0-33.0); MEAN CORPUSCULAR HGB CONC 31.6 g/dl (32.0-37.0); MEAN CORPUSCULAR VOLUME 88.3 fl (82.0-101.0); MEAN PLATELET VOLUME 9.1 fl (7.4-10.4); MONOCYTE # 1.3 10^3/ul (0.3-0.9); MONOCYTES % 12.1 % (0.0-11.0); NEUTROPHIL # 7.1 10^3/ul (1.6-7.5); NEUTROPHILS % 64.8 % (39.0-77.0); PLATELET COUNT 740 10^3/UL (140-415); RED BLOOD COUNT 3.08 10^6/ul (4.20-5.40); RED CELL DISTRIBUTION WIDTH 15.3 % (11.5-14.5)
[2018-09-09 09:44] LABS: ANION GAP 12 (5-13); BLOOD UREA NITROGEN 41 mg/dl (7-20); CALCIUM 9.1 mg/dl (8.4-10.2); CARBON DIOXIDE 21 mmol/L (21-31); CHLORIDE 106 mmol/L (97-110); CREATININE 0.98 mg/dl (0.44-1.00); Estimated GFR 56 mL/min (>60); GLUCOSE 155 mg/dl (70-220); MAGNESIUM 2.5 mg/dl (1.7-2.5); POTASSIUM 3.7 mmol/L (3.5-5.1); SODIUM 139 mmol/L (135-144)
[2018-09-09 09:44] LABS: PHOSPHORUS 3.4 mg/dl (2.5-4.9)
[2018-09-09] MEDS: MAGNESIUM CITRATE 300 ML BTL PO (10:28)
[2018-09-09 13:15] LABS: ALPHA FETOPROTEIN 0.98 IU/L (0.00-7.21)
[2018-09-09] MEDS: INSULIN ASPART [NOVOLOG] 3 ML PEN SC ×2 (17:03→20:49)
[2018-09-09] MEDS: ALPRAZOLAM 0.25 MG TAB PO (18:50)
[2018-09-09] MEDS: traZODone 50 MG TAB PO (20:48)
[2018-09-09] MEDS: ATORVASTATIN 20 MG TAB PO (20:48)
[2018-09-09] MEDS: LORAZEPAM 2 MG INJ IV (23:02)
[2018-09-10] MEDS: ACCU-CHEK XX (02:00)
[2018-09-10] MEDS: PANTOPRAZOLE (EC) 40 MG TAB PO (06:20)
[2018-09-10] MEDS: LEVOTHYROXINE 50 MCG TAB PO (06:20)
[2018-09-10] MEDS: INSULIN ASPART [NOVOLOG] 3 ML PEN SC ×5 (08:30→20:40)
[2018-09-10] MEDS: POLYETHYLENE GLYCOL 17 GM PACKET PO (08:31)
[2018-09-10] MEDS: ASPIRIN (EC) 81 MG TAB PO (08:31)
[2018-09-10] MEDS: DOCUSATE SODIUM 100 MG CAP PO ×2 (08:31→20:39)
[2018-09-10] MEDS: ENOXAPARIN 30 MG/0.3 ML SYG SC (08:31)
[2018-09-10] MEDS: METOPROLOL (XL) 25 MG TAB PO ×2 (08:32→20:29)
[2018-09-10] MEDS: CYANOCOBALAMIN 100 MCG TAB PO (08:33)
[2018-09-10 08:36] LABS: ADD MAN DIFF? NO
[2018-09-10 08:39] LABS: ABNORMAL IP MESSAGE 1; BASOPHIL # 0.1 10^3/ul (0.0-0.1); BASOPHILS % 0.4 % (0.0-2.0); EOSINOPHILS # 0.2 10^3/ul (0.0-0.5); EOSINOPHILS % 1.2 % (0.0-7.0); HEMATOCRIT 26.2 % (37.0-47.0); HEMOGLOBIN 8.4 g/dl (12.0-16.0); LYMPHOCYTES # 2.7 10^3/ul (0.8-2.9); MEAN CORPUSCULAR HEMOGLOBIN 27.9 pg (29.0-33.0); MEAN CORPUSCULAR HGB CONC 32.1 g/dl (32.0-37.0); MEAN PLATELET VOLUME 9.4 fl (7.4-10.4); MONOCYTE # 1.8 10^3/ul (0.3-0.9); MONOCYTES % 13.5 % (0.0-11.0); NEUTROPHIL # 8.6 10^3/ul (1.6-7.5); NEUTROPHILS % 64.2 % (39.0-77.0); PLATELET COUNT 748 10^3/UL (140-415); RED BLOOD COUNT 3.01 10^6/ul (4.20-5.40); RED CELL DISTRIBUTION WIDTH 15.4 % (11.5-14.5)
[2018-09-10 08:39] LABS: WHITE BLOOD COUNT 13.4 10^3/ul (4.8-10.8)
[2018-09-10] MEDS: CLOPIDOGREL 75 MG TAB PO (08:41)
[2018-09-10 08:45] LABS: POSITIVE DIFF @See below
[2018-09-10 08:55] LABS: INR 0.97
[2018-09-10 08:56] LABS: PARTIAL THROMBOPLASTIN TIME 40.5 Sec (23.0-35.0)
[2018-09-10 09:06] LABS: ANION GAP 8 (5-13); BLOOD UREA NITROGEN 45 mg/dl (7-20); CALCIUM 9.2 mg/dl (8.4-10.2); CARBON DIOXIDE 23 mmol/L (21-31); CHLORIDE 103 mmol/L (97-110); CREATININE 1.13 mg/dl (0.44-1.00); Estimated GFR 48 mL/min (>60); GLUCOSE 211 mg/dl (70-220); POTASSIUM 4.4 mmol/L (3.5-5.1); SODIUM 134 mmol/L (135-144)
[2018-09-10 09:13] LABS: PHOSPHORUS 3.7 mg/dl (2.5-4.9)
[2018-09-10 09:13] LABS: MAGNESIUM 2.7 mg/dl (1.7-2.5)
[2018-09-10] MEDS: SOD CHLORIDE 0.9% 500 ML (16:08)
[2018-09-10] MEDS: FENTAnyl 50 MCG/ML VIAL (16:30)
[2018-09-10] MEDS: LIDOCAINE 1% (MDV) 20 ML INJ (16:31)
[2018-09-10] MEDS: INSULIN GLARGINE [LANTus] (100 UNITS/ML) SYG SC (20:23)
[2018-09-10] MEDS: ATORVASTATIN 20 MG TAB PO (20:23)
[2018-09-10] MEDS: ZOLPIDEM 5 MG TAB PO (20:23)
[2018-09-10] MEDS: ALPRAZOLAM 0.25 MG TAB PO (20:23)
[2018-09-11] MEDS: ACCU-CHEK XX (01:05)
[2018-09-11] MEDS: HYDROCODONE/APAP (5/325) TAB PO (03:38)
[2018-09-11] MEDS: PANTOPRAZOLE (EC) 40 MG TAB PO (05:03)
[2018-09-11] MEDS: ALPRAZOLAM 0.25 MG TAB PO ×2 (05:03→15:58)
[2018-09-11] MEDS: LEVOTHYROXINE 50 MCG TAB PO (06:07)
[2018-09-11] MEDS: INSULIN ASPART [NOVOLOG] 3 ML PEN SC ×7 (07:00→21:00)
[2018-09-11 07:30] LABS: ADD MAN DIFF? NO
[2018-09-11 07:31] LABS: WHITE BLOOD COUNT 11.6 10^3/ul (4.8-10.8)
[2018-09-11 07:31] LABS: ABNORMAL IP MESSAGE 1; BASOPHILS % 0.3 % (0.0-2.0); EOSINOPHILS # 0.2 10^3/ul (0.0-0.5); EOSINOPHILS % 2.1 % (0.0-7.0); HEMATOCRIT 23.5 % (37.0-47.0); HEMOGLOBIN 7.5 g/dl (12.0-16.0); LYMPHOCYTES # 2.3 10^3/ul (0.8-2.9); LYMPHOCYTES % 19.5 % (15.0-51.0); MEAN CORPUSCULAR HGB CONC 31.9 g/dl (32.0-37.0); MEAN CORPUSCULAR VOLUME 87.7 fl (82.0-101.0); MEAN PLATELET VOLUME 9.2 fl (7.4-10.4); MONOCYTE # 1.6 10^3/ul (0.3-0.9); MONOCYTES % 13.4 % (0.0-11.0); NEUTROPHIL # 7.4 10^3/ul (1.6-7.5); NEUTROPHILS % 63.8 % (39.0-77.0); PLATELET COUNT 643 10^3/UL (140-415); RED BLOOD COUNT 2.68 10^6/ul (4.20-5.40); RED CELL DISTRIBUTION WIDTH 15.5 % (11.5-14.5)
[2018-09-11 07:34] LABS: POSITIVE DIFF @See below
[2018-09-11 07:53] LABS: ANION GAP 7 (5-13); BLOOD UREA NITROGEN 45 mg/dl (7-20); CALCIUM 8.8 mg/dl (8.4-10.2); CARBON DIOXIDE 21 mmol/L (21-31); CHLORIDE 106 mmol/L (97-110); CREATININE 1.27 mg/dl (0.44-1.00); Estimated GFR 42 mL/min (>60); GLUCOSE 139 mg/dl (70-220); POTASSIUM 4.1 mmol/L (3.5-5.1); SODIUM 134 mmol/L (135-144)
[2018-09-11 07:54] LABS: PHOSPHORUS 4.6 mg/dl (2.5-4.9)
[2018-09-11 07:54] LABS: MAGNESIUM 2.6 mg/dl (1.7-2.5)
[2018-09-11] MEDS: CYANOCOBALAMIN 100 MCG TAB PO (08:42)
[2018-09-11] MEDS: CLOPIDOGREL 75 MG TAB PO (08:43)
[2018-09-11] MEDS: ENOXAPARIN 30 MG/0.3 ML SYG SC (08:43)
[2018-09-11] MEDS: ASPIRIN (EC) 81 MG TAB PO (08:44)
[2018-09-11] MEDS: DOCUSATE SODIUM 100 MG CAP PO ×2 (08:44→20:09)
[2018-09-11] MEDS: POLYETHYLENE GLYCOL 17 GM PACKET PO (08:45)
[2018-09-11] MEDS: METOPROLOL (XL) 25 MG TAB PO ×2 (08:45→21:39)
[2018-09-11 10:59] LABS: HEMATOCRIT 26.8 % (37.0-47.0); HEMOGLOBIN 8.6 g/dl (12.0-16.0)
[2018-09-11] MEDS: ACETAMINOPHEN 325 MG TAB PO (15:58)
[2018-09-11] MEDS: INSULIN GLARGINE [LANTus] (100 UNITS/ML) SYG SC (20:04)
[2018-09-11] MEDS: ZOLPIDEM 5 MG TAB PO (20:09)
[2018-09-11] MEDS: ATORVASTATIN 20 MG TAB PO (20:09)
[2018-09-12] MEDS: ACCU-CHEK XX (02:00)
[2018-09-12] MEDS: ALPRAZOLAM 0.25 MG TAB PO ×2 (02:16→11:14)
[2018-09-12] MEDS: ONDANSETRON 4 MG INJ IV (04:32)
[2018-09-12 05:56] LABS: ADD MAN DIFF? NO
[2018-09-12] MEDS: PANTOPRAZOLE (EC) 40 MG TAB PO (05:58)
[2018-09-12] MEDS: LEVOTHYROXINE 50 MCG TAB PO (06:00)
[2018-09-12 06:04] LABS: BASOPHIL # 0.1 10^3/ul (0.0-0.1); BASOPHILS % 0.4 % (0.0-2.0); EOSINOPHILS # 0.3 10^3/ul (0.0-0.5); EOSINOPHILS % 1.7 % (0.0-7.0); HEMATOCRIT 23.3 % (37.0-47.0); HEMOGLOBIN 7.7 g/dl (12.0-16.0); LYMPHOCYTES # 2.3 10^3/ul (0.8-2.9); LYMPHOCYTES % 15.6 % (15.0-51.0); MEAN CORPUSCULAR HEMOGLOBIN 29.1 pg (29.0-33.0); MEAN CORPUSCULAR VOLUME 87.9 fl (82.0-101.0); MEAN PLATELET VOLUME 9.4 fl (7.4-10.4); MONOCYTE # 1.4 10^3/ul (0.3-0.9); MONOCYTES % 9.6 % (0.0-11.0); NEUTROPHIL # 10.7 10^3/ul (1.6-7.5); NEUTROPHILS % 71.9 % (39.0-77.0); PLATELET COUNT 713 10^3/UL (140-415); RED BLOOD COUNT 2.65 10^6/ul (4.20-5.40); RED CELL DISTRIBUTION WIDTH 15.2 % (11.5-14.5)
[2018-09-12 06:04] LABS: WHITE BLOOD COUNT 14.9 10^3/ul (4.8-10.8)
[2018-09-12 06:41] LABS: ANION GAP 8 (5-13); BLOOD UREA NITROGEN 52 mg/dl (7-20); CALCIUM 8.9 mg/dl (8.4-10.2); CARBON DIOXIDE 19 mmol/L (21-31); CHLORIDE 108 mmol/L (97-110); CREATININE 1.27 mg/dl (0.44-1.00); Estimated GFR 42 mL/min (>60); GLUCOSE 137 mg/dl (70-220); POTASSIUM 4.3 mmol/L (3.5-5.1); SODIUM 135 mmol/L (135-144)
[2018-09-12] MEDS: INSULIN ASPART [NOVOLOG] 3 ML PEN SC ×7 (07:00→21:00)
[2018-09-12 07:06] LABS: MAGNESIUM 2.5 mg/dl (1.7-2.5)
[2018-09-12] MEDS: ASPIRIN (EC) 81 MG TAB PO (08:36)
[2018-09-12] MEDS: CYANOCOBALAMIN 100 MCG TAB PO (08:36)
[2018-09-12] MEDS: METOPROLOL (XL) 25 MG TAB PO ×2 (08:38→21:13)
[2018-09-12] MEDS: DOCUSATE SODIUM 100 MG CAP PO ×2 (08:39→21:12)
[2018-09-12] MEDS: POLYETHYLENE GLYCOL 17 GM PACKET PO (08:39)
[2018-09-12] MEDS: CLOPIDOGREL 75 MG TAB PO (08:39)
[2018-09-12] MEDS: ACETAMINOPHEN 325 MG TAB PO (08:48)
[2018-09-12] MEDS: ENOXAPARIN 30 MG/0.3 ML SYG SC (09:00)
[2018-09-12 09:40] LABS: IRON 16 ug/dl (35-150)
[2018-09-12 09:50] LABS: % IRON SATURATION 5 % SAT (22-52); TOTAL IRON BINDING CAPACITY 305 ug/dl (241-421)
[2018-09-12 10:17] LABS: FERRITIN 36.9 ng/ml (11.1-264.0)
[2018-09-12] MEDS: HYDROCODONE/APAP (5/325) TAB PO ×2 (11:14→21:14)
[2018-09-12 17:11] LABS: CHOLESTEROL 134 mg/dl (100-200)
[2018-09-12 17:11] LABS: CHOL/HDL RATIO 5.5 RATIO; HDL CHOLESTEROL 24 mg/dl (33-92); LDL CHOLESTEROL,CALCULATED 87 mg/dl; TRIGLYCERIDES 114 mg/dl (0-149)
[2018-09-12 17:21] LABS: HEMOGLOBIN A1C 6.8 % (0-5.9)
[2018-09-12 17:21] LABS: B-TYPE NATRIURETIC PEPTIDE 5470 PG/ML (0-125)
[2018-09-12 19:08] LABS: TROPONIN-I < 0.012 ng/ml (0.000-0.120)
[2018-09-12] MEDS: SOD FERRIC GLUC COMPLX 125 MG in SOD CHLORIDE 0.9% 100 ML IVPB (20:00)
[2018-09-12] MEDS: ATORVASTATIN 20 MG TAB PO (21:12)
[2018-09-12] MEDS: INSULIN GLARGINE [LANTus] (100 UNITS/ML) SYG SC (21:12)
[2018-09-12] MEDS: ZOLPIDEM 5 MG TAB PO (22:14)
[2018-09-13] MEDS: ACCU-CHEK XX (01:46)
[2018-09-13] MEDS: PANTOPRAZOLE (EC) 40 MG TAB PO (06:02)
[2018-09-13] MEDS: LEVOTHYROXINE 50 MCG TAB PO (06:02)
[2018-09-13 07:02] LABS: ADD MAN DIFF? NO
[2018-09-13 07:07] LABS: BASOPHIL # 0.1 10^3/ul (0.0-0.1); BASOPHILS % 0.4 % (0.0-2.0); EOSINOPHILS # 0.3 10^3/ul (0.0-0.5); EOSINOPHILS % 2.6 % (0.0-7.0); HEMATOCRIT 25.7 % (37.0-47.0); HEMOGLOBIN 8.2 g/dl (12.0-16.0); LYMPHOCYTES # 2.7 10^3/ul (0.8-2.9); LYMPHOCYTES % 21.5 % (15.0-51.0); MEAN CORPUSCULAR HEMOGLOBIN 28.2 pg (29.0-33.0); MEAN CORPUSCULAR HGB CONC 31.9 g/dl (32.0-37.0); MEAN CORPUSCULAR VOLUME 88.3 fl (82.0-101.0); MEAN PLATELET VOLUME 9.4 fl (7.4-10.4); MONOCYTE # 1.4 10^3/ul (0.3-0.9); MONOCYTES % 11.4 % (0.0-11.0); NEUTROPHIL # 7.9 10^3/ul (1.6-7.5); NEUTROPHILS % 63.4 % (39.0-77.0); PLATELET COUNT 791 10^3/UL (140-415); RED BLOOD COUNT 2.91 10^6/ul (4.20-5.40); RED CELL DISTRIBUTION WIDTH 15.8 % (11.5-14.5)
[2018-09-13 07:07] LABS: WHITE BLOOD COUNT 12.5 10^3/ul (4.8-10.8)
[2018-09-13 07:37] LABS: ANION GAP 8 (5-13); BLOOD UREA NITROGEN 52 mg/dl (7-20); CALCIUM 9.2 mg/dl (8.4-10.2); CARBON DIOXIDE 21 mmol/L (21-31); CHLORIDE 107 mmol/L (97-110); CREATININE 1.25 mg/dl (0.44-1.00); Estimated GFR 42 mL/min (>60); GLUCOSE 118 mg/dl (70-220); POTASSIUM 5.9 mmol/L (3.5-5.1); SODIUM 136 mmol/L (135-144)
[2018-09-13 07:42] LABS: TROPONIN-I < 0.012 ng/ml (0.000-0.120)
[2018-09-13] MEDS: INSULIN ASPART [NOVOLOG] 3 ML PEN SC ×7 (07:54→20:02)
[2018-09-13 07:58] LABS: PHOSPHORUS 4.7 mg/dl (2.5-4.9)
[2018-09-13 07:58] LABS: MAGNESIUM 2.6 mg/dl (1.7-2.5)
[2018-09-13] MEDS: CLOPIDOGREL 75 MG TAB PO (08:54)
[2018-09-13] MEDS: DOCUSATE SODIUM 100 MG CAP PO ×2 (08:54→20:10)
[2018-09-13] MEDS: METOPROLOL (XL) 25 MG TAB PO ×2 (08:54→20:03)
[2018-09-13] MEDS: POLYETHYLENE GLYCOL 17 GM PACKET PO (08:54)
[2018-09-13] MEDS: ASPIRIN (EC) 81 MG TAB PO (08:54)
[2018-09-13] MEDS: ENOXAPARIN 30 MG/0.3 ML SYG SC (08:55)
[2018-09-13] MEDS: CYANOCOBALAMIN 100 MCG TAB PO (08:55)
[2018-09-13 10:02] LABS: POTASSIUM 5.4 mmol/L (3.5-5.1)
[2018-09-13] MEDS: AL HYDROX/MG HYDROX/SIMETH 30 ML CUP PO (10:42)
[2018-09-13] MEDS: HYDROCODONE/APAP (5/325) TAB PO ×2 (12:18→20:04)
[2018-09-13] MEDS: SOD FERRIC GLUC COMPLX 125 MG in SOD CHLORIDE 0.9% 100 ML IVPB (12:19)
[2018-09-13] MEDS: SODIUM POLYSTYRENE 15 GM KIT (POWDER + SORBITOL) PO (13:30)
[2018-09-13 14:04] LABS: TROPONIN-I < 0.012 ng/ml (0.000-0.120)
[2018-09-13] MEDS: ACETAMINOPHEN 325 MG TAB PO (16:11)
[2018-09-13 19:11] LABS: TROPONIN-I < 0.012 ng/ml (0.000-0.120)
[2018-09-13] MEDS: INSULIN GLARGINE [LANTus] (100 UNITS/ML) SYG SC (20:01)
[2018-09-13] MEDS: ATORVASTATIN 20 MG TAB PO (20:04)
[2018-09-13] MEDS: ZOLPIDEM 5 MG TAB PO (21:47)
[2018-09-14] MEDS: ACCU-CHEK XX (01:04)
[2018-09-14] MEDS: PANTOPRAZOLE (EC) 40 MG TAB PO (06:00)
[2018-09-14 06:05] LABS: ADD MAN DIFF? NO
[2018-09-14] MEDS: LEVOTHYROXINE 50 MCG TAB PO (06:12)
[2018-09-14 06:25] LABS: BASOPHIL # 0.1 10^3/ul (0.0-0.1); BASOPHILS % 0.5 % (0.0-2.0); EOSINOPHILS # 0.2 10^3/ul (0.0-0.5); EOSINOPHILS % 1.1 % (0.0-7.0); HEMATOCRIT 24.5 % (37.0-47.0); HEMOGLOBIN 7.9 g/dl (12.0-16.0); LYMPHOCYTES # 1.9 10^3/ul (0.8-2.9); MEAN CORPUSCULAR HEMOGLOBIN 28.3 pg (29.0-33.0); MEAN CORPUSCULAR HGB CONC 32.2 g/dl (32.0-37.0); MEAN CORPUSCULAR VOLUME 87.8 fl (82.0-101.0); MEAN PLATELET VOLUME 9.3 fl (7.4-10.4); MONOCYTE # 1.1 10^3/ul (0.3-0.9); MONOCYTES % 8.4 % (0.0-11.0); NEUTROPHIL # 10.1 10^3/ul (1.6-7.5); NEUTROPHILS % 75.5 % (39.0-77.0); PLATELET COUNT 763 10^3/UL (140-415); RED BLOOD COUNT 2.79 10^6/ul (4.20-5.40); RED CELL DISTRIBUTION WIDTH 15.4 % (11.5-14.5)
[2018-09-14 06:25] LABS: WHITE BLOOD COUNT 13.3 10^3/ul (4.8-10.8)
[2018-09-14 06:40] LABS: TROPONIN-I < 0.012 ng/ml (0.000-0.120)
[2018-09-14 06:45] LABS: ANION GAP 10 (5-13); BLOOD UREA NITROGEN 57 mg/dl (7-20); CALCIUM 8.9 mg/dl (8.4-10.2); CARBON DIOXIDE 20 mmol/L (21-31); CHLORIDE 107 mmol/L (97-110); CREATININE 1.33 mg/dl (0.44-1.00); Estimated GFR 40 mL/min (>60); GLUCOSE 144 mg/dl (70-220); SODIUM 137 mmol/L (135-144)
[2018-09-14 06:49] LABS: PHOSPHORUS 4.4 mg/dl (2.5-4.9)
[2018-09-14 06:49] LABS: MAGNESIUM 2.6 mg/dl (1.7-2.5)
[2018-09-14] MEDS: INSULIN ASPART [NOVOLOG] 3 ML PEN SC ×7 (08:00→20:47)
[2018-09-14 09:06] LABS: B-TYPE NATRIURETIC PEPTIDE 2780 PG/ML (0-125)
[2018-09-14] MEDS: HYDROCODONE/APAP (5/325) TAB PO ×2 (09:14→21:02)
[2018-09-14] MEDS: ENOXAPARIN 30 MG/0.3 ML SYG SC (09:15)
[2018-09-14] MEDS: REGADENOSON 0.4 MG/5 ML SYG (11:47)
[2018-09-14] MEDS: CYANOCOBALAMIN 100 MCG TAB PO (12:59)
[2018-09-14] MEDS: CLOPIDOGREL 75 MG TAB PO (12:59)
[2018-09-14] MEDS: ASPIRIN (EC) 81 MG TAB PO (12:59)
[2018-09-14] MEDS: METOPROLOL (XL) 25 MG TAB PO ×2 (12:59→20:38)
[2018-09-14] MEDS: DOCUSATE SODIUM 100 MG CAP PO ×2 (13:00→20:39)
[2018-09-14] MEDS: POLYETHYLENE GLYCOL 17 GM PACKET PO (13:06)
[2018-09-14] MEDS: SOD FERRIC GLUC COMPLX 125 MG in SOD CHLORIDE 0.9% 100 ML IVPB (13:08)
[2018-09-14 14:41] LABS: TROPONIN-I < 0.012 ng/ml (0.000-0.120)
[2018-09-14 19:45] LABS: TROPONIN-I < 0.012 ng/ml (0.000-0.120)
[2018-09-14] MEDS: ZOLPIDEM 5 MG TAB PO (20:38)
[2018-09-14] MEDS: ATORVASTATIN 20 MG TAB PO (20:39)
[2018-09-14] MEDS: INSULIN GLARGINE [LANTus] (100 UNITS/ML) SYG SC (21:09)
[2018-09-14] MEDS: ALPRAZOLAM 0.25 MG TAB PO (23:04)
[2018-09-15] MEDS: ACCU-CHEK XX (02:00)
[2018-09-15] MEDS: HYDROCODONE/APAP (5/325) TAB PO ×2 (02:49→17:59)
[2018-09-15] MEDS: PANTOPRAZOLE (EC) 40 MG TAB PO (05:47)
[2018-09-15] MEDS: LEVOTHYROXINE 50 MCG TAB PO (05:49)
[2018-09-15 06:11] LABS: ADD MAN DIFF? NO
[2018-09-15 06:24] LABS: ABNORMAL IP MESSAGE 1; BASOPHIL # 0.1 10^3/ul (0.0-0.1); BASOPHILS % 0.4 % (0.0-2.0); EOSINOPHILS # 0.2 10^3/ul (0.0-0.5); EOSINOPHILS % 1.4 % (0.0-7.0); HEMATOCRIT 21.6 % (37.0-47.0); LYMPHOCYTES # 2.9 10^3/ul (0.8-2.9); LYMPHOCYTES % 20.1 % (15.0-51.0); MEAN CORPUSCULAR HEMOGLOBIN 28.8 pg (29.0-33.0); MEAN CORPUSCULAR HGB CONC 32.4 g/dl (32.0-37.0); MEAN CORPUSCULAR VOLUME 88.9 fl (82.0-101.0); MEAN PLATELET VOLUME 9.4 fl (7.4-10.4); MONOCYTE # 1.8 10^3/ul (0.3-0.9); MONOCYTES % 12.6 % (0.0-11.0); NEUTROPHIL # 9.2 10^3/ul (1.6-7.5); PLATELET COUNT 692 10^3/UL (140-415); RED BLOOD COUNT 2.43 10^6/ul (4.20-5.40); RED CELL DISTRIBUTION WIDTH 15.7 % (11.5-14.5)
[2018-09-15 06:24] LABS: WHITE BLOOD COUNT 14.2 10^3/ul (4.8-10.8)
[2018-09-15 06:30] LABS: POSITIVE DIFF @See below
[2018-09-15 06:46] LABS: ANION GAP 6 (5-13); BLOOD UREA NITROGEN 55 mg/dl (7-20); CARBON DIOXIDE 22 mmol/L (21-31); CHLORIDE 107 mmol/L (97-110); CREATININE 1.42 mg/dl (0.44-1.00); Estimated GFR 37 mL/min (>60); GLUCOSE 75 mg/dl (70-220); MAGNESIUM 2.8 mg/dl (1.7-2.5); PHOSPHORUS 4.7 mg/dl (2.5-4.9); POTASSIUM 4.7 mmol/L (3.5-5.1); SODIUM 135 mmol/L (135-144)
[2018-09-15] MEDS: INSULIN ASPART [NOVOLOG] 3 ML PEN SC ×7 (07:00→21:00)
[2018-09-15] MEDS: ENOXAPARIN 30 MG/0.3 ML SYG SC (09:00)
[2018-09-15] MEDS: CLOPIDOGREL 75 MG TAB PO (09:15)
[2018-09-15] MEDS: ASPIRIN (EC) 81 MG TAB PO (09:15)
[2018-09-15] MEDS: CYANOCOBALAMIN 100 MCG TAB PO (09:15)
[2018-09-15] MEDS: DOCUSATE SODIUM 100 MG CAP PO ×2 (09:15→21:00)
[2018-09-15] MEDS: POLYETHYLENE GLYCOL 17 GM PACKET PO (09:15)
[2018-09-15] MEDS: METOPROLOL (XL) 25 MG TAB PO ×2 (09:21→20:48)
[2018-09-15] MEDS: AL HYDROX/MG HYDROX/SIMETH 30 ML CUP PO (09:31)
[2018-09-15] MEDS: SOD CHLORIDE 0.9% 1,000 ML IV (12:36)
[2018-09-15] MEDS: FUROSEMIDE 40 MG INJ IV (19:41)
[2018-09-15] MEDS: ATORVASTATIN 20 MG TAB PO (20:46)
[2018-09-15] MEDS: ZOLPIDEM 5 MG TAB PO (20:48)
[2018-09-15] MEDS: INSULIN GLARGINE [LANTus] (100 UNITS/ML) SYG SC (21:00)
[2018-09-15 21:14] LABS: ADD UMIC YES; UR ASCORBIC ACID 40 mg/dL (NEGATIVE); UR BILIRUBIN (Dip) NEGATIVE (NEGATIVE); UR BLOOD (Dip) NEGATIVE (NEGATIVE); UR CLARITY SLIGHTLY CLOUDY (CLEAR); UR COLOR YELLOW (YELLOW); UR GLUCOSE (Dip) NEGATIVE (NEGATIVE); UR KETONES (Dip) NEGATIVE (NEGATIVE); UR LEUKOCYTE ESTERASE (Dip) TRACE Leu/ul (NEGATIVE); UR NITRITE (Dip) NEGATIVE (NEGATIVE); UR RBC 0 /HPF (0-5); UR SPECIFIC GRAVITY (Dip) 1.019 (1.003-1.030); UR SQUAMOUS EPITHELIAL CELL FEW /HPF (FEW); UR TOTAL PROTEIN (Dip) NEGATIVE (NEGATIVE); UR UROBILINOGEN (Dip) NEGATIVE (NEGATIVE); UR WBC 4 /HPF (0-5)
[2018-09-15 21:28] LABS: SODIUM,URINE RANDOM 30 mmol/L (30-90)
[2018-09-15 21:28] LABS: CREATININE,URINE RANDOM 99.26 mg/dl (20-320)
[2018-09-16] MEDS: ACCU-CHEK XX (02:10)
[2018-09-16] MEDS: ALPRAZOLAM 0.25 MG TAB PO (02:37)
[2018-09-16] MEDS: PANTOPRAZOLE (EC) 40 MG TAB PO (05:25)
[2018-09-16] MEDS: LEVOTHYROXINE 50 MCG TAB PO (05:25)
[2018-09-16] MEDS: INSULIN ASPART [NOVOLOG] 3 ML PEN SC ×7 (07:00→20:58)
[2018-09-16] MEDS: SOD CHLORIDE 0.9% 1,000 ML IV ×2 (08:00→14:13)
[2018-09-16] MEDS: ASPIRIN (EC) 81 MG TAB PO (08:12)
[2018-09-16] MEDS: ENOXAPARIN 30 MG/0.3 ML SYG SC (08:13)
[2018-09-16] MEDS: POLYETHYLENE GLYCOL 17 GM PACKET PO (08:13)
[2018-09-16] MEDS: DOCUSATE SODIUM 100 MG CAP PO ×2 (08:13→20:50)
[2018-09-16] MEDS: CYANOCOBALAMIN 100 MCG TAB PO (08:55)
[2018-09-16] MEDS: METOPROLOL (XL) 25 MG TAB PO ×2 (08:55→20:58)
[2018-09-16] MEDS: CLOPIDOGREL 75 MG TAB PO (08:56)
[2018-09-16 10:08] LABS: ADD MAN DIFF? NO
[2018-09-16 10:10] LABS: BASOPHILS % 0.3 % (0.0-2.0); EOSINOPHILS # 0.1 10^3/ul (0.0-0.5); EOSINOPHILS % 0.6 % (0.0-7.0); HEMATOCRIT 26.1 % (37.0-47.0); HEMOGLOBIN 8.4 g/dl (12.0-16.0); LYMPHOCYTES # 1.8 10^3/ul (0.8-2.9); LYMPHOCYTES % 13.6 % (15.0-51.0); MEAN CORPUSCULAR HEMOGLOBIN 28.7 pg (29.0-33.0); MEAN CORPUSCULAR HGB CONC 32.2 g/dl (32.0-37.0); MEAN CORPUSCULAR VOLUME 89.1 fl (82.0-101.0); MEAN PLATELET VOLUME 9.2 fl (7.4-10.4); MONOCYTE # 1.2 10^3/ul (0.3-0.9); MONOCYTES % 8.8 % (0.0-11.0); NEUTROPHIL # 9.9 10^3/ul (1.6-7.5); NEUTROPHILS % 76.1 % (39.0-77.0); PLATELET COUNT 833 10^3/UL (140-415); RED BLOOD COUNT 2.93 10^6/ul (4.20-5.40); RED CELL DISTRIBUTION WIDTH 15.9 % (11.5-14.5)
[2018-09-16 10:32] LABS: ANION GAP 14 (5-13); BLOOD UREA NITROGEN 49 mg/dl (7-20); CALCIUM 9.1 mg/dl (8.4-10.2); CARBON DIOXIDE 21 mmol/L (21-31); CHLORIDE 103 mmol/L (97-110); CREATININE 1.33 mg/dl (0.44-1.00); Estimated GFR 40 mL/min (>60); GLUCOSE 112 mg/dl (70-220); POTASSIUM 4.2 mmol/L (3.5-5.1); SODIUM 138 mmol/L (135-144)
[2018-09-16] MEDS: LIDOCAINE 1% (MPF) 5 ML VIAL (11:55)
[2018-09-16 12:41] LABS: FLD MN% 84.7 %; FLD PMN% 15.3 %; FLD RBC 12000 /uL; FLD WBC 302 /cmm
[2018-09-16 13:09] LABS: FLD TYPE THORACENTHESIS
[2018-09-16 13:09] LABS: FLD CLARITY TURBID; FLD COLOR AMBER; PATH REVIEW? YES
[2018-09-16 13:13] LABS: FLUID LD 1989 U/L; FLUID TYPE THORACENTESIS FLUID
[2018-09-16] MEDS: AL HYDROX/MG HYDROX/SIMETH 30 ML CUP PO (14:13)
[2018-09-16] MEDS: HYDROCODONE/APAP (5/325) TAB PO (16:11)
[2018-09-16] MEDS: ATORVASTATIN 20 MG TAB PO (20:50)
[2018-09-16] MEDS: ZOLPIDEM 5 MG TAB PO (20:51)
[2018-09-16] MEDS: INSULIN GLARGINE [LANTus] (100 UNITS/ML) SYG SC (20:57)
[2018-09-17] MEDS: HYDROCODONE/APAP (5/325) TAB PO ×3 (00:30→17:46)
[2018-09-17] MEDS: ACCU-CHEK XX (02:00)
[2018-09-17 06:02] LABS: ADD MAN DIFF? NO
[2018-09-17 06:04] LABS: WHITE BLOOD COUNT 11.2 10^3/ul (4.8-10.8)
[2018-09-17 06:04] LABS: ABNORMAL IP MESSAGE 1; BASOPHILS % 0.2 % (0.0-2.0); EOSINOPHILS # 0.2 10^3/ul (0.0-0.5); EOSINOPHILS % 1.3 % (0.0-7.0); HEMATOCRIT 24.3 % (37.0-47.0); HEMOGLOBIN 7.9 g/dl (12.0-16.0); LYMPHOCYTES # 2.3 10^3/ul (0.8-2.9); LYMPHOCYTES % 20.4 % (15.0-51.0); MEAN CORPUSCULAR HEMOGLOBIN 28.5 pg (29.0-33.0); MEAN CORPUSCULAR HGB CONC 32.5 g/dl (32.0-37.0); MEAN CORPUSCULAR VOLUME 87.7 fl (82.0-101.0); MEAN PLATELET VOLUME 9.3 fl (7.4-10.4); MONOCYTE # 1.6 10^3/ul (0.3-0.9); MONOCYTES % 14.5 % (0.0-11.0); NEUTROPHIL # 7.1 10^3/ul (1.6-7.5); NEUTROPHILS % 63.1 % (39.0-77.0); NUCLEATED RED BLOOD CELLS% 0.2 /100WBC (0.0-0.0); PLATELET COUNT 751 10^3/UL (140-415); RED BLOOD COUNT 2.77 10^6/ul (4.20-5.40); RED CELL DISTRIBUTION WIDTH 16.4 % (11.5-14.5)
[2018-09-17 06:15] LABS: POSITIVE DIFF @See below
[2018-09-17] MEDS: PANTOPRAZOLE (EC) 40 MG TAB PO (06:31)
[2018-09-17] MEDS: LEVOTHYROXINE 50 MCG TAB PO (06:31)
[2018-09-17 06:57] LABS: ANION GAP 9 (5-13); BLOOD UREA NITROGEN 47 mg/dl (7-20); CALCIUM 8.7 mg/dl (8.4-10.2); CARBON DIOXIDE 21 mmol/L (21-31); CHLORIDE 107 mmol/L (97-110); CREATININE 1.24 mg/dl (0.44-1.00); Estimated GFR 43 mL/min (>60); GLUCOSE 87 mg/dl (70-220); POTASSIUM 4.4 mmol/L (3.5-5.1); SODIUM 137 mmol/L (135-144)
[2018-09-17] MEDS: INSULIN ASPART [NOVOLOG] 3 ML PEN SC ×7 (07:00→20:31)
[2018-09-17] MEDS: CYANOCOBALAMIN 100 MCG TAB PO (08:16)
[2018-09-17] MEDS: CLOPIDOGREL 75 MG TAB PO (08:16)
[2018-09-17] MEDS: POLYETHYLENE GLYCOL 17 GM PACKET PO (08:16)
[2018-09-17] MEDS: DOCUSATE SODIUM 100 MG CAP PO ×2 (08:16→20:20)
[2018-09-17] MEDS: METOPROLOL (XL) 25 MG TAB PO ×2 (08:17→20:21)
[2018-09-17] MEDS: ASPIRIN (EC) 81 MG TAB PO (08:17)
[2018-09-17] MEDS: ENOXAPARIN 30 MG/0.3 ML SYG SC (08:54)
[2018-09-17] MEDS: SOD CHLORIDE 0.9% 1,000 ML IV ×2 (10:00→20:43)
[2018-09-17] MEDS: ALPRAZOLAM 0.25 MG TAB PO ×2 (10:34→23:44)
[2018-09-17 13:37] LABS: CREATININE, RANDOM URINE 97 mg/dL (20-275); MICROALBUMIN 2.4 mg/dL; MICROALBUMIN/CREATININE RATIO 25 (<30)
[2018-09-17 14:30] LABS: PATH REVIEW CH
[2018-09-17] MEDS: ZOLPIDEM 5 MG TAB PO (20:20)
[2018-09-17] MEDS: ATORVASTATIN 20 MG TAB PO (20:20)
[2018-09-17] MEDS: ACETAMINOPHEN 325 MG TAB PO (20:30)
[2018-09-17] MEDS: INSULIN GLARGINE [LANTus] (100 UNITS/ML) SYG SC (23:26)
[2018-09-17] MEDS: AL HYDROX/MG HYDROX/SIMETH 30 ML CUP PO (23:45)
[2018-09-18] MEDS: HYDROCODONE/APAP (5/325) TAB PO ×2 (01:27→14:44)
[2018-09-18] MEDS: ACCU-CHEK XX (02:00)
[2018-09-18] MEDS: PANTOPRAZOLE (EC) 40 MG TAB PO (05:44)
[2018-09-18] MEDS: LEVOTHYROXINE 50 MCG TAB PO (05:44)
[2018-09-18] MEDS: ACETAMINOPHEN 325 MG TAB PO (05:46)
[2018-09-18 06:20] LABS: ADD MAN DIFF? NO
[2018-09-18 06:28] LABS: WHITE BLOOD COUNT 11.1 10^3/ul (4.8-10.8)
[2018-09-18 06:28] LABS: ABNORMAL IP MESSAGE 1; BASOPHILS % 0.4 % (0.0-2.0); EOSINOPHILS # 0.3 10^3/ul (0.0-0.5); EOSINOPHILS % 2.7 % (0.0-7.0); HEMATOCRIT 24.8 % (37.0-47.0); HEMOGLOBIN 7.9 g/dl (12.0-16.0); LYMPHOCYTES # 2.4 10^3/ul (0.8-2.9); LYMPHOCYTES % 21.5 % (15.0-51.0); MEAN CORPUSCULAR HEMOGLOBIN 28.5 pg (29.0-33.0); MEAN CORPUSCULAR HGB CONC 31.9 g/dl (32.0-37.0); MEAN CORPUSCULAR VOLUME 89.5 fl (82.0-101.0); MEAN PLATELET VOLUME 9.2 fl (7.4-10.4); MONOCYTE # 1.6 10^3/ul (0.3-0.9); MONOCYTES % 14.2 % (0.0-11.0); NEUTROPHIL # 6.7 10^3/ul (1.6-7.5); NEUTROPHILS % 60.7 % (39.0-77.0); PLATELET COUNT 762 10^3/UL (140-415); RED BLOOD COUNT 2.77 10^6/ul (4.20-5.40); RED CELL DISTRIBUTION WIDTH 16.8 % (11.5-14.5)
[2018-09-18 06:38] LABS: POSITIVE DIFF @See below
[2018-09-18 06:42] LABS: ANION GAP 9 (5-13); BLOOD UREA NITROGEN 40 mg/dl (7-20); CALCIUM 8.7 mg/dl (8.4-10.2); CARBON DIOXIDE 18 mmol/L (21-31); CHLORIDE 110 mmol/L (97-110); CREATININE 1.18 mg/dl (0.44-1.00); Estimated GFR 45 mL/min (>60); GLUCOSE 83 mg/dl (70-220); POTASSIUM 4.6 mmol/L (3.5-5.1); SODIUM 137 mmol/L (135-144)
[2018-09-18] MEDS: INSULIN ASPART [NOVOLOG] 3 ML PEN SC ×7 (07:00→21:32)
[2018-09-18] MEDS: DOCUSATE SODIUM 100 MG CAP PO ×2 (08:43→21:00)
[2018-09-18] MEDS: ASPIRIN (EC) 81 MG TAB PO (08:43)
[2018-09-18] MEDS: CYANOCOBALAMIN 100 MCG TAB PO (08:43)
[2018-09-18] MEDS: ALPRAZOLAM 0.25 MG TAB PO ×2 (08:43→22:30)
[2018-09-18] MEDS: METOPROLOL (XL) 25 MG TAB PO ×2 (08:43→21:33)
[2018-09-18] MEDS: CLOPIDOGREL 75 MG TAB PO (08:43)
[2018-09-18] MEDS: POLYETHYLENE GLYCOL 17 GM PACKET PO (08:44)
[2018-09-18] MEDS: ENOXAPARIN 30 MG/0.3 ML SYG SC (09:05)
[2018-09-18] MEDS: morphine 4 MG/ML VIAL IV (20:04)
[2018-09-18] MEDS: INSULIN GLARGINE [LANTus] (100 UNITS/ML) SYG SC (21:28)
[2018-09-18] MEDS: ATORVASTATIN 20 MG TAB PO (21:33)
[2018-09-18] MEDS: ZOLPIDEM 5 MG TAB PO (23:00)
[2018-09-19] MEDS: ACCU-CHEK XX (02:00)
[2018-09-19 05:27] LABS: ADD MAN DIFF? NO
[2018-09-19 05:39] LABS: BASOPHIL # 0.1 10^3/ul (0.0-0.1); BASOPHILS % 0.5 % (0.0-2.0); EOSINOPHILS # 0.2 10^3/ul (0.0-0.5); EOSINOPHILS % 1.7 % (0.0-7.0); HEMATOCRIT 24.9 % (37.0-47.0); HEMOGLOBIN 7.9 g/dl (12.0-16.0); LYMPHOCYTES # 2.2 10^3/ul (0.8-2.9); LYMPHOCYTES % 19.6 % (15.0-51.0); MEAN CORPUSCULAR HEMOGLOBIN 28.5 pg (29.0-33.0); MEAN CORPUSCULAR HGB CONC 31.7 g/dl (32.0-37.0); MEAN CORPUSCULAR VOLUME 89.9 fl (82.0-101.0); MEAN PLATELET VOLUME 9.2 fl (7.4-10.4); MONOCYTE # 1.3 10^3/ul (0.3-0.9); MONOCYTES % 12.2 % (0.0-11.0); NEUTROPHIL # 7.2 10^3/ul (1.6-7.5); NEUTROPHILS % 65.5 % (39.0-77.0); PLATELET COUNT 799 10^3/UL (140-415); RED BLOOD COUNT 2.77 10^6/ul (4.20-5.40); RED CELL DISTRIBUTION WIDTH 16.6 % (11.5-14.5)
[2018-09-19 05:53] LABS: ANION GAP 10 (5-13); BLOOD UREA NITROGEN 35 mg/dl (7-20); CALCIUM 9.1 mg/dl (8.4-10.2); CARBON DIOXIDE 20 mmol/L (21-31); CHLORIDE 111 mmol/L (97-110); CREATININE 1.27 mg/dl (0.44-1.00); Estimated GFR 42 mL/min (>60); GLUCOSE 150 mg/dl (70-220); POTASSIUM 5.2 mmol/L (3.5-5.1); SODIUM 141 mmol/L (135-144)
[2018-09-19] MEDS: PANTOPRAZOLE (EC) 40 MG TAB PO (06:30)
[2018-09-19] MEDS: LEVOTHYROXINE 50 MCG TAB PO (06:30)
[2018-09-19] MEDS: INSULIN ASPART [NOVOLOG] 3 ML PEN SC ×7 (07:00→20:27)
[2018-09-19] MEDS: CYANOCOBALAMIN 100 MCG TAB PO (08:40)
[2018-09-19] MEDS: CLOPIDOGREL 75 MG TAB PO (08:40)
[2018-09-19] MEDS: METOPROLOL (XL) 25 MG TAB PO ×2 (08:41→20:26)
[2018-09-19] MEDS: ASPIRIN (EC) 81 MG TAB PO (08:41)
[2018-09-19] MEDS: DOCUSATE SODIUM 100 MG CAP PO ×2 (08:49→20:26)
[2018-09-19] MEDS: POLYETHYLENE GLYCOL 17 GM PACKET PO (09:00)
[2018-09-19] MEDS: ENOXAPARIN 30 MG/0.3 ML SYG SC (09:40)
[2018-09-19] MEDS: LORAZEPAM 2 MG INJ IV (09:59)
[2018-09-19] MEDS: DILTIAZEM 25 MG INJ IV (09:59)
[2018-09-19] MEDS: SOD CHLORIDE 0.9% 1,000 ML IV (10:49)
[2018-09-19] MEDS: ALPRAZOLAM 0.25 MG TAB PO (14:50)
[2018-09-19] MEDS: HYDROCODONE/APAP (5/325) TAB PO (17:14)
[2018-09-19] MEDS: EPOETIN ALFA-EPBX (NON-ESRD 10,000 UNIT/ML VIAL SC (17:14)
[2018-09-19] MEDS: ONDANSETRON 4 MG INJ IV (18:34)
[2018-09-19] MEDS: ATORVASTATIN 20 MG TAB PO (20:26)
[2018-09-19] MEDS: ZOLPIDEM 5 MG TAB PO (20:35)
[2018-09-19] MEDS: INSULIN GLARGINE [LANTus] (100 UNITS/ML) SYG SC (20:59)
[2018-09-20] MEDS: ALPRAZOLAM 0.25 MG TAB PO (00:10)
[2018-09-20] MEDS: DIPHENHYDRAMINE 50 MG INJ IV (00:23)
[2018-09-20] MEDS: HALOPERIDOL 5 MG INJ IM (00:23)
[2018-09-20] MEDS: ACCU-CHEK XX (02:00)
[2018-09-20] MEDS: ALBUTEROL/IPRATROPIUM (NEB) 3 ML AMP HHN (03:28)
[2018-09-20] MEDS: HYDROCODONE/APAP (5/325) TAB PO (03:42)
[2018-09-20] MEDS: DILTIAZEM 25 MG INJ IV (03:50)
[2018-09-20 05:19] LABS: ADD MAN DIFF? NO
[2018-09-20 05:26] LABS: WHITE BLOOD COUNT 14.7 10^3/ul (4.8-10.8)
[2018-09-20 05:26] LABS: BASOPHIL # 0.1 10^3/ul (0.0-0.1); BASOPHILS % 0.3 % (0.0-2.0); EOSINOPHILS % 0.1 % (0.0-7.0); HEMATOCRIT 28.5 % (37.0-47.0); HEMOGLOBIN 8.6 g/dl (12.0-16.0); LYMPHOCYTES # 1.4 10^3/ul (0.8-2.9); LYMPHOCYTES % 9.6 % (15.0-51.0); MEAN CORPUSCULAR HEMOGLOBIN 28.5 pg (29.0-33.0); MEAN CORPUSCULAR HGB CONC 30.2 g/dl (32.0-37.0); MEAN CORPUSCULAR VOLUME 94.4 fl (82.0-101.0); MEAN PLATELET VOLUME 9.2 fl (7.4-10.4); MONOCYTE # 1.3 10^3/ul (0.3-0.9); MONOCYTES % 8.8 % (0.0-11.0); NEUTROPHIL # 11.8 10^3/ul (1.6-7.5); NEUTROPHILS % 80.2 % (39.0-77.0); PLATELET COUNT 832 10^3/UL (140-415); RED BLOOD COUNT 3.02 10^6/ul (4.20-5.40); RED CELL DISTRIBUTION WIDTH 17.2 % (11.5-14.5)
[2018-09-20] MEDS: SOD CHLORIDE 0.9% 1,000 ML IV ×3 (05:29→10:34)
[2018-09-20 05:56] LABS: ANION GAP 13 (5-13); BLOOD UREA NITROGEN 32 mg/dl (7-20); CARBON DIOXIDE 18 mmol/L (21-31); CHLORIDE 110 mmol/L (97-110); Estimated GFR 49 mL/min (>60); GLUCOSE 203 mg/dl (70-220); POTASSIUM 5.2 mmol/L (3.5-5.1); SODIUM 141 mmol/L (135-144)
[2018-09-20] MEDS: PANTOPRAZOLE (EC) 40 MG TAB PO (06:00)
[2018-09-20] MEDS: LEVOTHYROXINE 50 MCG TAB PO (06:16)
[2018-09-20] MEDS: INSULIN ASPART [NOVOLOG] 3 ML PEN SC ×7 (07:00→20:53)
[2018-09-20] MEDS ORDERED: FUROSEMIDE 20 MG INJ IV (07:30)
[2018-09-20] MEDS: FUROSEMIDE 20 MG INJ IV ×2 (07:42→10:36)
[2018-09-20 07:52] LABS: AADO2 Arterial 619.5 mmHg (7.0-24.0); Arterial Base Excess -13.3 mmol/L (-3.0-3); Arterial Blood Gas Oxygen Sat 77.6 mmHG (95.0-98.0); Arterial COHb 0.4 % (0.0-3.0); Arterial HCO3 14.4 mmol/L (22.0-26.0); Arterial MetHb 0.4 % (0.0-1.5); Arterial pCO2 40.2 mmhg (35-45); MODE MASK - NRB; Site LB
[2018-09-20] MEDS: ENOXAPARIN 30 MG/0.3 ML SYG SC (09:00)
[2018-09-20] MEDS: POLYETHYLENE GLYCOL 17 GM PACKET PO (09:00)
[2018-09-20] MEDS: DOCUSATE SODIUM 100 MG CAP PO ×2 (09:00→20:54)
[2018-09-20] MEDS: CLOPIDOGREL 75 MG TAB PO (09:00)
[2018-09-20] MEDS: METOPROLOL (XL) 25 MG TAB PO ×2 (09:00→21:00)
[2018-09-20] MEDS: CYANOCOBALAMIN 100 MCG TAB PO (09:00)
[2018-09-20] MEDS: ASPIRIN (EC) 81 MG TAB PO (09:00)
[2018-09-20] MEDS ORDERED: PROPOFOL 100 ML (09:05)
[2018-09-20] MEDS ORDERED: ALBUMIN HUMAN 25% 100 ML (09:30)
[2018-09-20] MEDS ORDERED: NORepinephrine 8MG/250 ML (PMX 250 ML (09:40)
[2018-09-20] MEDS: PROPOFOL 100 ML IV ×3 (10:24→19:36)
[2018-09-20] MEDS: ALBUMIN HUMAN 25% 100 ML IV (10:32)
[2018-09-20 11:05] LABS: AADO2 Arterial 382.7 mmHg (7.0-24.0); Arterial Base Excess -11.6 mmol/L (-3.0-3); Arterial Blood Gas Oxygen Sat 99.9 mmHG (95.0-98.0); Arterial COHb 0.3 % (0.0-3.0); Arterial Fraction of Oxyhgb 99.4 % (93.0-99.0); Arterial HCO3 13.5 mmol/L (22.0-26.0); Arterial MetHb 0.2 % (0.0-1.5); Arterial pCO2 27.4 mmhg (35-45); MODE VENT - AC; Site LB
[2018-09-20] MEDS ORDERED: NA BICARBONATE 8.4% 50 ML SYG (11:42)
[2018-09-20] MEDS: NA BICARBONATE 8.4% 50 ML SYG IV (12:14)
[2018-09-20 12:20] LABS: ADD MAN DIFF? NO
[2018-09-20 12:22] LABS: WHITE BLOOD COUNT 18.1 10^3/ul (4.8-10.8)
[2018-09-20 12:22] LABS: BASOPHILS % 0.1 % (0.0-2.0); HEMATOCRIT 22.6 % (37.0-47.0); HEMOGLOBIN 7.2 g/dl (12.0-16.0); LYMPHOCYTES # 1.3 10^3/ul (0.8-2.9); MEAN CORPUSCULAR HEMOGLOBIN 28.7 pg (29.0-33.0); MEAN CORPUSCULAR HGB CONC 31.9 g/dl (32.0-37.0); MEAN PLATELET VOLUME 9.1 fl (7.4-10.4); MONOCYTE # 1.1 10^3/ul (0.3-0.9); MONOCYTES % 5.9 % (0.0-11.0); NEUTROPHIL # 15.5 10^3/ul (1.6-7.5); NEUTROPHILS % 85.6 % (39.0-77.0); PLATELET COUNT 672 10^3/UL (140-415); RED BLOOD COUNT 2.51 10^6/ul (4.20-5.40); RED CELL DISTRIBUTION WIDTH 16.9 % (11.5-14.5)
[2018-09-20 12:38] LABS: ALANINE AMINOTRANSFERASE 475 IU/L (13-69); ALBUMIN 2.9 g/dl (3.3-4.9); ALKALINE PHOSPHATASE 95 IU/L (42-121); ANION GAP 12 (5-13); BILIRUBIN,INDIRECT 0.2 mg/dl (0-1.1); BILIRUBIN,TOTAL 0.2 mg/dl (0.2-1.3); BLOOD UREA NITROGEN 36 mg/dl (7-20); CALCIUM 8.4 mg/dl (8.4-10.2); CARBON DIOXIDE 20 mmol/L (21-31); CHLORIDE 110 mmol/L (97-110); CREATININE 1.18 mg/dl (0.44-1.00); Estimated GFR 45 mL/min (>60); GLUCOSE 182 mg/dl (70-220); POTASSIUM 4.3 mmol/L (3.5-5.1); SODIUM 142 mmol/L (135-144); TOTAL PROTEIN 6.1 g/dl (6.1-8.1)
[2018-09-20 12:47] LABS: ASPARTATE AMINO TRANSFERASE 1222 IU/L (15-46)
[2018-09-20] MEDS: NORepinephrine 8MG/250 ML (PMX 250 ML IV (13:03)
[2018-09-20] MEDS: CEFEPIME 2GM/50 ML (PMX) 50 ML IVPB ×2 (13:36→21:56)
[2018-09-20] MEDS: [UNRECOGNIZED DRUG - OTHER] IV (16:41)
[2018-09-20] MEDS: D5W IV (16:41)
[2018-09-20 18:14] LABS: IMMEDIATE SPIN CROSSMATCH 1 1
[2018-09-20] MEDS: INSULIN GLARGINE [LANTus] (100 UNITS/ML) SYG SC (20:53)
[2018-09-20] MEDS: ATORVASTATIN 20 MG TAB PO (20:54)
[2018-09-20 23:59] LABS: HEMOGLOBIN 10.1 g/dl (12.0-16.0)
[2018-09-21] MEDS: INSULIN ASPART [NOVOLOG] 3 ML PEN SC ×6 (00:49→20:36)
[2018-09-21] MEDS: LORAZEPAM 2 MG INJ IV ×2 (01:43→12:39)
[2018-09-21] MEDS: ACCU-CHEK XX (01:47)
[2018-09-21] MEDS ORDERED: ACCU-CHEK XX (02:00)
[2018-09-21] MEDS: PROPOFOL 100 ML IV ×3 (03:40→18:41)
[2018-09-21 05:41] LABS: ADD MAN DIFF? NO
[2018-09-21 05:51] LABS: BASOPHILS % 0.2 % (0.0-2.0); EOSINOPHILS % 0.1 % (0.0-7.0); HEMATOCRIT 30.5 % (37.0-47.0); LYMPHOCYTES # 1.3 10^3/ul (0.8-2.9); LYMPHOCYTES % 7.8 % (15.0-51.0); MEAN CORPUSCULAR HEMOGLOBIN 28.7 pg (29.0-33.0); MEAN CORPUSCULAR HGB CONC 32.8 g/dl (32.0-37.0); MEAN CORPUSCULAR VOLUME 87.4 fl (82.0-101.0); MEAN PLATELET VOLUME 9.4 fl (7.4-10.4); MONOCYTE # 1.2 10^3/ul (0.3-0.9); MONOCYTES % 6.9 % (0.0-11.0); NEUTROPHILS % 84.1 % (39.0-77.0); PLATELET COUNT 689 10^3/UL (140-415); RED BLOOD COUNT 3.49 10^6/ul (4.20-5.40); RED CELL DISTRIBUTION WIDTH 16.9 % (11.5-14.5)
[2018-09-21 05:51] LABS: WHITE BLOOD COUNT 16.7 10^3/ul (4.8-10.8)
[2018-09-21] MEDS: LEVOTHYROXINE 50 MCG TAB PO (06:01)
[2018-09-21] MEDS: CEFEPIME 2GM/50 ML (PMX) 50 ML IVPB ×2 (06:01→17:15)
[2018-09-21] MEDS: PANTOPRAZOLE (EC) 40 MG TAB PO (06:01)
[2018-09-21 06:05] LABS: ANION GAP 10 (5-13); BLOOD UREA NITROGEN 39 mg/dl (7-20); CALCIUM 8.3 mg/dl (8.4-10.2); CARBON DIOXIDE 20 mmol/L (21-31); CHLORIDE 110 mmol/L (97-110); CREATININE 1.22 mg/dl (0.44-1.00); Estimated GFR 44 mL/min (>60); GLUCOSE 173 mg/dl (70-220); POTASSIUM 3.4 mmol/L (3.5-5.1); SODIUM 140 mmol/L (135-144)
[2018-09-21 07:43] LABS: AADO2 Arterial 114.6 mmHg (7.0-24.0); Allen Test ACCEPTAB; Arterial Base Excess -3.2 mmol/L (-3.0-3); Arterial Blood Gas Oxygen Sat 94.1 mmHG (95.0-98.0); Arterial COHb 0.3 % (0.0-3.0); Arterial Fraction of Oxyhgb 93.8 % (93.0-99.0); Arterial HCO3 18.5 mmol/L (22.0-26.0); Arterial MetHb 0 % (0.0-1.5); Arterial pCO2 24.2 mmhg (35-45); MODE VENT - AC; Site Right Radial
[2018-09-21 07:44] LABS: AADO2 Arterial 162.2 mmHg (7.0-24.0); Allen Test ACCEPTAB; Arterial Base Excess -7.9 mmol/L (-3.0-3); Arterial COHb 0.3 % (0.0-3.0); Arterial Fraction of Oxyhgb 96.5 % (93.0-99.0); Arterial HCO3 15.8 mmol/L (22.0-26.0); Arterial MetHb 0.2 % (0.0-1.5); Arterial pCO2 26.5 mmhg (35-45); MODE VENT - AC; Site Right Radial
[2018-09-21] MEDS: SOD CHLORIDE 0.9% 1,000 ML IV (08:51)
[2018-09-21] MEDS: NORepinephrine 8MG/250 ML (PMX 250 ML IV (08:57)
[2018-09-21] MEDS: POLYETHYLENE GLYCOL 17 GM PACKET PO (09:00)
[2018-09-21] MEDS: DOCUSATE SODIUM 100 MG CAP PO ×2 (09:00→20:33)
[2018-09-21] MEDS: METOPROLOL (XL) 25 MG TAB PO (09:00)
[2018-09-21] MEDS: CLOPIDOGREL 75 MG TAB PO (09:32)
[2018-09-21] MEDS: POTASSIUM CHLORIDE 20 MEQ POWDER FOR ORAL SOLN NGT (09:32)
[2018-09-21] MEDS: ASPIRIN (EC) 81 MG TAB PO (09:32)
[2018-09-21] MEDS: CYANOCOBALAMIN 100 MCG TAB PO (09:34)
[2018-09-21] MEDS: ENOXAPARIN 30 MG/0.3 ML SYG SC (09:35)
[2018-09-21] MEDS: ATORVASTATIN 20 MG TAB PO (20:33)
[2018-09-21] MEDS: INSULIN GLARGINE [LANTus] (100 UNITS/ML) SYG SC (20:36)
[2018-09-21 22:05] LABS: ERYTHROPOIETIN 41.6 mIU/mL (2.6-18.5)
[2018-09-22] MEDS ORDERED: ATROPINE 1 MG/10 ML SYRINGE
[2018-09-22] MEDS ORDERED: EPINEPHrine 0.1 MG/ML SYG
[2018-09-22] MEDS: INSULIN ASPART [NOVOLOG] 3 ML PEN SC ×6 (01:38→20:34)
[2018-09-22] MEDS: ACCU-CHEK XX (01:40)
[2018-09-22] MEDS: PROPOFOL 100 ML IV ×3 (03:55→23:37)
[2018-09-22] MEDS: SOD CHLORIDE 0.9% 1,000 ML IV (03:56)
[2018-09-22 05:22] LABS: ADD MAN DIFF? NO
[2018-09-22 05:25] LABS: BASOPHILS % 0.1 % (0.0-2.0); EOSINOPHILS # 0.2 10^3/ul (0.0-0.5); EOSINOPHILS % 1.3 % (0.0-7.0); HEMATOCRIT 30.3 % (37.0-47.0); HEMOGLOBIN 10.2 g/dl (12.0-16.0); LYMPHOCYTES # 1.4 10^3/ul (0.8-2.9); LYMPHOCYTES % 8.3 % (15.0-51.0); MEAN CORPUSCULAR HEMOGLOBIN 29.1 pg (29.0-33.0); MEAN CORPUSCULAR HGB CONC 33.7 g/dl (32.0-37.0); MEAN CORPUSCULAR VOLUME 86.6 fl (82.0-101.0); MEAN PLATELET VOLUME 9.7 fl (7.4-10.4); MONOCYTE # 1.1 10^3/ul (0.3-0.9); MONOCYTES % 6.7 % (0.0-11.0); NEUTROPHIL # 13.5 10^3/ul (1.6-7.5); NEUTROPHILS % 82.8 % (39.0-77.0); NUCLEATED RED BLOOD CELLS% 0.2 /100WBC (0.0-0.0); PLATELET COUNT 659 10^3/UL (140-415); RED CELL DISTRIBUTION WIDTH 17.3 % (11.5-14.5)
[2018-09-22 05:25] LABS: WHITE BLOOD COUNT 16.3 10^3/ul (4.8-10.8)
[2018-09-22] MEDS: LANSOPRAZOLE 30 MG CAP NGT (05:30)
[2018-09-22] MEDS: CEFEPIME 2GM/50 ML (PMX) 50 ML IVPB ×2 (05:33→16:41)
[2018-09-22 05:45] LABS: ANION GAP 7 (5-13); BLOOD UREA NITROGEN 40 mg/dl (7-20); CALCIUM 8.1 mg/dl (8.4-10.2); CARBON DIOXIDE 19 mmol/L (21-31); CHLORIDE 113 mmol/L (97-110); CREATININE 1.12 mg/dl (0.44-1.00); Estimated GFR 48 mL/min (>60); GLUCOSE 135 mg/dl (70-220); SODIUM 139 mmol/L (135-144)
[2018-09-22 06:18] LABS: POTASSIUM 3.6 mmol/L (3.5-5.1)
[2018-09-22] MEDS: LEVOTHYROXINE 50 MCG TAB PO (06:46)
[2018-09-22 07:00] LABS: PHOSPHORUS 2.9 mg/dl (2.5-4.9)
[2018-09-22 07:00] LABS: MAGNESIUM 2.4 mg/dl (1.7-2.5)
[2018-09-22] MEDS: DOCUSATE SODIUM 100 MG CAP PO ×2 (07:42→20:23)
[2018-09-22] MEDS: POLYETHYLENE GLYCOL 17 GM PACKET PO (07:42)
[2018-09-22] MEDS: CYANOCOBALAMIN 100 MCG TAB PO (08:46)
[2018-09-22] MEDS: CLOPIDOGREL 75 MG TAB PO (08:46)
[2018-09-22] MEDS: ASPIRIN (EC) 81 MG TAB PO (08:46)
[2018-09-22] MEDS: ENOXAPARIN 30 MG/0.3 ML SYG SC (08:50)
[2018-09-22] MEDS: EPOETIN ALFA-EPBX (NON-ESRD 10,000 UNIT/ML VIAL SC (16:15)
[2018-09-22] MEDS: ATORVASTATIN 20 MG TAB PO (20:23)
[2018-09-22] MEDS: INSULIN GLARGINE [LANTus] (100 UNITS/ML) SYG SC (20:33)
[2018-09-23] MEDS: SOD CHLORIDE 0.9% 1,000 ML IV (00:10)
[2018-09-23] MEDS: INSULIN ASPART [NOVOLOG] 3 ML PEN SC ×6 (00:15→20:18)
[2018-09-23] MEDS: ACCU-CHEK XX (01:58)
[2018-09-23] MEDS: CEFEPIME 2GM/50 ML (PMX) 50 ML IVPB (05:04)
[2018-09-23] MEDS: LANSOPRAZOLE 30 MG CAP NGT (05:05)
[2018-09-23 05:25] LABS: ADD MAN DIFF? NO
[2018-09-23 05:30] LABS: ABNORMAL IP MESSAGE 1; BASOPHILS % 0.2 % (0.0-2.0); EOSINOPHILS # 0.4 10^3/ul (0.0-0.5); EOSINOPHILS % 2.2 % (0.0-7.0); HEMATOCRIT 32.2 % (37.0-47.0); HEMOGLOBIN 10.8 g/dl (12.0-16.0); LYMPHOCYTES % 11.9 % (15.0-51.0); MEAN CORPUSCULAR HEMOGLOBIN 28.6 pg (29.0-33.0); MEAN CORPUSCULAR HGB CONC 33.5 g/dl (32.0-37.0); MEAN CORPUSCULAR VOLUME 85.2 fl (82.0-101.0); MEAN PLATELET VOLUME 9.8 fl (7.4-10.4); MONOCYTE # 1.6 10^3/ul (0.3-0.9); MONOCYTES % 9.6 % (0.0-11.0); NEUTROPHIL # 12.4 10^3/ul (1.6-7.5); NEUTROPHILS % 75.3 % (39.0-77.0); NUCLEATED RED BLOOD CELLS # 0.1 10^3/ul (0.0-0.0); NUCLEATED RED BLOOD CELLS% 0.3 /100WBC (0.0-0.0); PLATELET COUNT 690 10^3/UL (140-415); RED BLOOD COUNT 3.78 10^6/ul (4.20-5.40); RED CELL DISTRIBUTION WIDTH 17.6 % (11.5-14.5)
[2018-09-23 05:30] LABS: WHITE BLOOD COUNT 16.5 10^3/ul (4.8-10.8)
[2018-09-23 05:50] LABS: ANION GAP 10 (5-13); BLOOD UREA NITROGEN 40 mg/dl (7-20); CALCIUM 8.3 mg/dl (8.4-10.2); CARBON DIOXIDE 17 mmol/L (21-31); CHLORIDE 114 mmol/L (97-110); Estimated GFR 49 mL/min (>60); GLUCOSE 84 mg/dl (70-220); MAGNESIUM 2.6 mg/dl (1.7-2.5); PHOSPHORUS 3.3 mg/dl (2.5-4.9); POTASSIUM 3.4 mmol/L (3.5-5.1); SODIUM 141 mmol/L (135-144)
[2018-09-23] MEDS: LEVOTHYROXINE 50 MCG TAB PO (06:07)
[2018-09-23 06:12] LABS: POSITIVE DIFF @See below
[2018-09-23] MEDS: POTASSIUM CHLORIDE 100 ML IVPB ×2 (06:44→09:28)
[2018-09-23] MEDS: PROPOFOL 100 ML IV ×2 (06:44→20:21)
[2018-09-23] MEDS: ENOXAPARIN 30 MG/0.3 ML SYG SC (09:00)
[2018-09-23] MEDS: CYANOCOBALAMIN 100 MCG TAB PO (09:27)
[2018-09-23] MEDS: CLOPIDOGREL 75 MG TAB PO (09:27)
[2018-09-23] MEDS: DOCUSATE SODIUM 100 MG CAP PO ×2 (09:27→20:19)
[2018-09-23] MEDS: POLYETHYLENE GLYCOL 17 GM PACKET PO (09:27)
[2018-09-23] MEDS: ASPIRIN (EC) 81 MG TAB PO (09:28)
[2018-09-23 18:45] LABS: CREATINE KINASE 55 IU/L (23-200)
[2018-09-23] MEDS: ATORVASTATIN 20 MG TAB PO (20:19)
[2018-09-23] MEDS: INSULIN GLARGINE [LANTus] (100 UNITS/ML) SYG SC (20:31)
[2018-09-23] MEDS: PIPER-TAZO 3.375 GM IV (PMX) 100 ML IVPB (21:07)
[2018-09-24] MEDS: INSULIN ASPART [NOVOLOG] 3 ML PEN SC ×6 (01:00→20:02)
[2018-09-24] MEDS: DEXTROSE 5%-0.45% NACL 1,000 ML IV ×2 (01:23→21:53)
[2018-09-24] MEDS: ACCU-CHEK XX (01:31)
[2018-09-24 05:15] LABS: ADD MAN DIFF? NO
[2018-09-24 05:19] LABS: ABNORMAL IP MESSAGE 1; BASOPHIL # 0.1 10^3/ul (0.0-0.1); BASOPHILS % 0.4 % (0.0-2.0); EOSINOPHILS # 0.3 10^3/ul (0.0-0.5); EOSINOPHILS % 2.4 % (0.0-7.0); HEMATOCRIT 31.3 % (37.0-47.0); HEMOGLOBIN 9.8 g/dl (12.0-16.0); LYMPHOCYTES # 1.8 10^3/ul (0.8-2.9); LYMPHOCYTES % 12.9 % (15.0-51.0); MEAN CORPUSCULAR HEMOGLOBIN 27.8 pg (29.0-33.0); MEAN CORPUSCULAR HGB CONC 31.3 g/dl (32.0-37.0); MEAN CORPUSCULAR VOLUME 88.9 fl (82.0-101.0); MEAN PLATELET VOLUME 9.7 fl (7.4-10.4); MONOCYTE # 1.8 10^3/ul (0.3-0.9); MONOCYTES % 13.2 % (0.0-11.0); NEUTROPHIL # 9.8 10^3/ul (1.6-7.5); NUCLEATED RED BLOOD CELLS # 0.1 10^3/ul (0.0-0.0); NUCLEATED RED BLOOD CELLS% 0.9 /100WBC (0.0-0.0); PLATELET COUNT 601 10^3/UL (140-415); RED BLOOD COUNT 3.52 10^6/ul (4.20-5.40); RED CELL DISTRIBUTION WIDTH 17.7 % (11.5-14.5)
[2018-09-24 05:19] LABS: WHITE BLOOD COUNT 13.9 10^3/ul (4.8-10.8)
[2018-09-24 05:22] LABS: POSITIVE DIFF @See below
[2018-09-24] MEDS: LANSOPRAZOLE 30 MG CAP NGT (05:33)
[2018-09-24] MEDS: PIPER-TAZO 3.375 GM IV (PMX) 100 ML IVPB ×3 (05:34→21:53)
[2018-09-24 05:42] LABS: CREATINE KINASE 48 IU/L (23-200)
[2018-09-24 05:47] LABS: ANION GAP 8 (5-13); BLOOD UREA NITROGEN 39 mg/dl (7-20); CALCIUM 8.3 mg/dl (8.4-10.2); CARBON DIOXIDE 17 mmol/L (21-31); CHLORIDE 117 mmol/L (97-110); CREATININE 1.47 mg/dl (0.44-1.00); Estimated GFR 35 mL/min (>60); GLUCOSE 109 mg/dl (70-220); MAGNESIUM 2.7 mg/dl (1.7-2.5); PHOSPHORUS 3.5 mg/dl (2.5-4.9); POTASSIUM 3.8 mmol/L (3.5-5.1); SODIUM 142 mmol/L (135-144)
[2018-09-24 05:55] LABS: CK INDEX 44.4
[2018-09-24] MEDS: LEVOTHYROXINE 50 MCG TAB PO (06:11)
[2018-09-24] MEDS: ENOXAPARIN 30 MG/0.3 ML SYG SC (08:38)
[2018-09-24] MEDS: CYANOCOBALAMIN 100 MCG TAB PO (09:03)
[2018-09-24] MEDS: FUROSEMIDE 40 MG INJ IV (09:03)
[2018-09-24] MEDS: POLYETHYLENE GLYCOL 17 GM PACKET PO (09:03)
[2018-09-24] MEDS: ASPIRIN (EC) 81 MG TAB PO (09:03)
[2018-09-24] MEDS: DOCUSATE SODIUM 100 MG CAP PO ×2 (09:03→20:08)
[2018-09-24] MEDS: CLOPIDOGREL 75 MG TAB PO (09:08)
[2018-09-24 12:29] LABS: CREATINE KINASE 50 IU/L (23-200)
[2018-09-24 12:43] LABS: CK INDEX 38.4
[2018-09-24] MEDS ORDERED: HEPARIN 1000 UNITS/NS (A-LINE) 0 ML (14:33)
[2018-09-24] MEDS ORDERED: LIDOCAINE 1% (MDV) 20 ML INJ (14:33)
[2018-09-24] MEDS: PROPOFOL 100 ML IV (17:56)
[2018-09-24] MEDS: EPOETIN ALFA-EPBX (NON-ESRD 10,000 UNIT/ML VIAL SC (18:07)
[2018-09-24] MEDS: INSULIN GLARGINE [LANTus] (100 UNITS/ML) SYG SC (20:07)
[2018-09-24] MEDS: ATORVASTATIN 20 MG TAB PO (20:08)
[2018-09-24] MEDS: METOPROLOL 25 MG TAB PO (20:09)
[2018-09-25] MEDS: INSULIN ASPART [NOVOLOG] 3 ML PEN SC ×6 (01:00→20:01)
[2018-09-25] MEDS: ACCU-CHEK XX (01:06)
[2018-09-25] MEDS: ALTEPLASE (CATHFLO) 2 MG INJ CATHETER (01:20)
[2018-09-25] MEDS: LANSOPRAZOLE 30 MG CAP NGT (05:11)
[2018-09-25] MEDS: PIPER-TAZO 3.375 GM IV (PMX) 100 ML IVPB ×3 (05:11→22:22)
[2018-09-25 05:24] LABS: ADD MAN DIFF? NO
[2018-09-25 05:34] LABS: ABNORMAL IP MESSAGE 1; BASOPHIL # 0.1 10^3/ul (0.0-0.1); BASOPHILS % 0.4 % (0.0-2.0); EOSINOPHILS # 0.5 10^3/ul (0.0-0.5); EOSINOPHILS % 3.5 % (0.0-7.0); HEMATOCRIT 29.5 % (37.0-47.0); HEMOGLOBIN 9.7 g/dl (12.0-16.0); LYMPHOCYTES % 13.9 % (15.0-51.0); MEAN CORPUSCULAR HEMOGLOBIN 28.4 pg (29.0-33.0); MEAN CORPUSCULAR HGB CONC 32.9 g/dl (32.0-37.0); MEAN CORPUSCULAR VOLUME 86.3 fl (82.0-101.0); MEAN PLATELET VOLUME 9.9 fl (7.4-10.4); MONOCYTE # 2.5 10^3/ul (0.3-0.9); NEUTROPHIL # 8.8 10^3/ul (1.6-7.5); NUCLEATED RED BLOOD CELLS # 0.3 10^3/ul (0.0-0.0); NUCLEATED RED BLOOD CELLS% 1.8 /100WBC (0.0-0.0); PLATELET COUNT 561 10^3/UL (140-415); RED BLOOD COUNT 3.42 10^6/ul (4.20-5.40); RED CELL DISTRIBUTION WIDTH 17.6 % (11.5-14.5)
[2018-09-25 05:56] LABS: ANION GAP 7 (5-13); BLOOD UREA NITROGEN 38 mg/dl (7-20); CALCIUM 8.6 mg/dl (8.4-10.2); CARBON DIOXIDE 17 mmol/L (21-31); CHLORIDE 117 mmol/L (97-110); CREATININE 1.46 mg/dl (0.44-1.00); Estimated GFR 36 mL/min (>60); GLUCOSE 55 mg/dl (70-220); MAGNESIUM 2.5 mg/dl (1.7-2.5); PHOSPHORUS 3.7 mg/dl (2.5-4.9); POTASSIUM 3.9 mmol/L (3.5-5.1); SODIUM 141 mmol/L (135-144)
[2018-09-25 05:57] LABS: CREATINE KINASE 39 IU/L (23-200)
[2018-09-25] MEDS: PROPOFOL 100 ML IV ×2 (05:59→18:25)
[2018-09-25 06:03] LABS: CK INDEX 37.4
[2018-09-25 06:05] LABS: POSITIVE DIFF @See below
[2018-09-25] MEDS: DEXTROSE 50% 50 ML SYRINGE IV (07:58)
[2018-09-25] MEDS: LEVOTHYROXINE 50 MCG TAB PO (07:58)
[2018-09-25] MEDS: METOPROLOL 25 MG TAB PO ×2 (10:27→20:25)
[2018-09-25] MEDS: CLOPIDOGREL 75 MG TAB PO (10:27)
[2018-09-25] MEDS: CYANOCOBALAMIN 100 MCG TAB PO (10:27)
[2018-09-25] MEDS: ENOXAPARIN 60 MG/0.6 ML SYG SC (10:29)
[2018-09-25] MEDS: POLYETHYLENE GLYCOL 17 GM PACKET PO (10:31)
[2018-09-25] MEDS: DOCUSATE SODIUM 100 MG CAP PO ×2 (10:32→20:25)
[2018-09-25] MEDS: ASPIRIN (EC) 81 MG TAB PO (10:32)
[2018-09-25] MEDS: DEXTROSE 5%-0.45% NACL 1,000 ML IV (18:23)
[2018-09-25] MEDS: ATORVASTATIN 20 MG TAB PO (20:25)
[2018-09-25] MEDS: INSULIN GLARGINE [LANTus] (100 UNITS/ML) SYG SC (20:27)
[2018-09-26] MEDS: INSULIN ASPART [NOVOLOG] 3 ML PEN SC ×6 (01:38→20:46)
[2018-09-26] MEDS: ACCU-CHEK XX (01:42)
[2018-09-26 04:50] LABS: ADD MAN DIFF? NO
[2018-09-26 04:59] LABS: ABNORMAL IP MESSAGE 1; BASOPHIL # 0.1 10^3/ul (0.0-0.1); BASOPHILS % 0.7 % (0.0-2.0); EOSINOPHILS # 0.6 10^3/ul (0.0-0.5); EOSINOPHILS % 3.5 % (0.0-7.0); HEMATOCRIT 30.1 % (37.0-47.0); HEMOGLOBIN 9.9 g/dl (12.0-16.0); LYMPHOCYTES # 2.4 10^3/ul (0.8-2.9); LYMPHOCYTES % 15.1 % (15.0-51.0); MEAN CORPUSCULAR HGB CONC 32.9 g/dl (32.0-37.0); MEAN CORPUSCULAR VOLUME 85.3 fl (82.0-101.0); MEAN PLATELET VOLUME 10.2 fl (7.4-10.4); MONOCYTE # 2.8 10^3/ul (0.3-0.9); MONOCYTES % 17.3 % (0.0-11.0); NEUTROPHIL # 9.5 10^3/ul (1.6-7.5); NEUTROPHILS % 59.4 % (39.0-77.0); NUCLEATED RED BLOOD CELLS # 0.5 10^3/ul (0.0-0.0); NUCLEATED RED BLOOD CELLS% 2.8 /100WBC (0.0-0.0); PLATELET COUNT 557 10^3/UL (140-415); RED BLOOD COUNT 3.53 10^6/ul (4.20-5.40); RED CELL DISTRIBUTION WIDTH 17.2 % (11.5-14.5)
[2018-09-26 05:02] LABS: POSITIVE DIFF @See below
[2018-09-26] MEDS: LANSOPRAZOLE 30 MG CAP NGT (05:32)
[2018-09-26] MEDS: PIPER-TAZO 3.375 GM IV (PMX) 100 ML IVPB ×3 (05:32→22:12)
[2018-09-26 05:34] LABS: ANION GAP 10 (5-13); BLOOD UREA NITROGEN 39 mg/dl (7-20); CALCIUM 8.5 mg/dl (8.4-10.2); CARBON DIOXIDE 17 mmol/L (21-31); CHLORIDE 114 mmol/L (97-110); CREATININE 1.83 mg/dl (0.44-1.00); Estimated GFR 27 mL/min (>60); GLUCOSE 154 mg/dl (70-220); MAGNESIUM 2.4 mg/dl (1.7-2.5); PHOSPHORUS 3.7 mg/dl (2.5-4.9); POTASSIUM 3.2 mmol/L (3.5-5.1); SODIUM 141 mmol/L (135-144)
[2018-09-26] MEDS: LEVOTHYROXINE 50 MCG TAB PO (06:02)
[2018-09-26] MEDS: POTASSIUM CHLORIDE 100 ML IVPB ×2 (06:06→09:04)
[2018-09-26] MEDS: DOCUSATE SODIUM 100 MG CAP PO ×2 (08:41→20:43)
[2018-09-26] MEDS: CYANOCOBALAMIN 100 MCG TAB PO (09:05)
[2018-09-26] MEDS: CLOPIDOGREL 75 MG TAB PO (09:05)
[2018-09-26] MEDS: ASPIRIN (EC) 81 MG TAB PO (09:05)
[2018-09-26] MEDS: METOPROLOL 25 MG TAB PO ×2 (09:05→20:43)
[2018-09-26] MEDS: ENOXAPARIN 60 MG/0.6 ML SYG SC (09:06)
[2018-09-26] MEDS: PROPOFOL 100 ML IV ×2 (09:16→18:08)
[2018-09-26] MEDS: POLYETHYLENE GLYCOL 17 GM PACKET PO (09:16)
[2018-09-26] MEDS: DEXTROSE 5%-0.45% NACL 1,000 ML IV (13:17)
[2018-09-26] MEDS: EPOETIN ALFA-EPBX (NON-ESRD 10,000 UNIT/ML VIAL SC (17:33)
[2018-09-26] MEDS: ATORVASTATIN 20 MG TAB PO (20:44)
[2018-09-26] MEDS: INSULIN GLARGINE [LANTus] (100 UNITS/ML) SYG SC (20:45)
[2018-09-27] MEDS: ACCU-CHEK XX (01:47)
[2018-09-27] MEDS: INSULIN ASPART [NOVOLOG] 3 ML PEN SC ×6 (01:47→20:50)
[2018-09-27 05:40] LABS: ADD MAN DIFF? NO
[2018-09-27 05:44] LABS: WHITE BLOOD COUNT 20.4 10^3/ul (4.8-10.8)
[2018-09-27 05:44] LABS: ABNORMAL IP MESSAGE 1; HEMATOCRIT 27.4 % (37.0-47.0); HEMOGLOBIN 9.1 g/dl (12.0-16.0); MEAN CORPUSCULAR HEMOGLOBIN 28.5 pg (29.0-33.0); MEAN CORPUSCULAR HGB CONC 33.2 g/dl (32.0-37.0); MEAN CORPUSCULAR VOLUME 85.9 fl (82.0-101.0); MEAN PLATELET VOLUME 10.5 fl (7.4-10.4); NUCLEATED RED BLOOD CELLS% 3.8 /100WBC (0.0-0.0); PLATELET COUNT 537 10^3/UL (140-415); RED BLOOD COUNT 3.19 10^6/ul (4.20-5.40)
[2018-09-27 05:53] LABS: POSITIVE DIFF @See below
[2018-09-27] MEDS: PIPER-TAZO 3.375 GM IV (PMX) 100 ML IVPB ×3 (06:06→21:45)
[2018-09-27] MEDS: LEVOTHYROXINE 50 MCG TAB PO (06:06)
[2018-09-27] MEDS: LANSOPRAZOLE 30 MG CAP NGT (06:06)
[2018-09-27 06:37] LABS: ANION GAP 10 (5-13); BLOOD UREA NITROGEN 44 mg/dl (7-20); CALCIUM 8.8 mg/dl (8.4-10.2); CARBON DIOXIDE 17 mmol/L (21-31); CHLORIDE 115 mmol/L (97-110); CREATININE 1.98 mg/dl (0.44-1.00); Estimated GFR 25 mL/min (>60); GLUCOSE 130 mg/dl (70-220); MAGNESIUM 2.5 mg/dl (1.7-2.5); PHOSPHORUS 3.5 mg/dl (2.5-4.9); POTASSIUM 3.7 mmol/L (3.5-5.1); SODIUM 142 mmol/L (135-144)
[2018-09-27 07:23] LABS: ANISOCYTOSIS 1+ (0-0); BAND NEUTROPHILS #M 0.2 10^3/ul (0.0-0.6); BAND NEUTROPHILS % (M) 1 % (0-4); BURR CELLS 1+ (0-0); EOSINOPHILS % (M) 5 % (0-7); ERYTHROBLAST% (NRBC) (M) 8 % (0-0); HYPOCHROMASIA 1+ (0-0); LYMPHOCYTES % (M) 15 % (15-51); METAMYELOCYTES #M 0.2 10^3/ul (0.0-0.0); METAMYELOCYTES %M 1 % (0-0); MONOCYTE #M 2.6 10^3/ul (0.3-0.9); MONOCYTES % (M) 13 % (0-11); MYELOCYTES #M 0.2 10^3/ul (0.0-0.0); MYELOCYTES % (M) 1 % (0-0); PLATELET ESTIMATE INCREASED; POLYCHROMASIA 3+ (0-0); SEG NEUT #M 13.1 10^3/ul (1.6-7.5); SEGMENTED NEUTROPHILS (M) % 64 % (39-77); SMUDGE%M 5 % (0-0); TARGET CELLS 1+ (0-0)
[2018-09-27] MEDS: FUROSEMIDE 40 MG INJ IV (07:47)
[2018-09-27] MEDS: CLOPIDOGREL 75 MG TAB PO (07:51)
[2018-09-27] MEDS: CYANOCOBALAMIN 100 MCG TAB PO (07:51)
[2018-09-27] MEDS: METOPROLOL 25 MG TAB PO ×2 (07:51→20:49)
[2018-09-27] MEDS: ASPIRIN (EC) 81 MG TAB PO (07:51)
[2018-09-27] MEDS: POLYETHYLENE GLYCOL 17 GM PACKET PO (07:52)
[2018-09-27] MEDS: DOCUSATE SODIUM 100 MG CAP PO ×2 (07:53→20:49)
[2018-09-27] MEDS: ENOXAPARIN 60 MG/0.6 ML SYG SC (07:53)
[2018-09-27 08:51] LABS: Allen Test ACCEPTAB; Arterial Base Excess -8.4 mmol/L (-3.0-3); Arterial Blood Gas Oxygen Sat 98.2 mmHG (95.0-98.0); Arterial COHb 0.1 % (0.0-3.0); Arterial Fraction of Oxyhgb 97.9 % (93.0-99.0); Arterial HCO3 14.3 mmol/L (22.0-26.0); Arterial MetHb 0.2 % (0.0-1.5); MODE VENT - AC; Site Right Radial
[2018-09-27] MEDS: PROPOFOL 100 ML IV ×2 (09:30→17:06)
[2018-09-27] MEDS: FENTAnyl (DRIP) 1000 mcg/100mL 100 ML IV (09:36)
[2018-09-27 12:56] LABS: AADO2 Arterial 72.3 mmHg (7.0-24.0); Allen Test ACCEPTAB; Arterial Base Excess -10.2 mmol/L (-3.0-3); Arterial COHb 0 % (0.0-3.0); Arterial Fraction of Oxyhgb 97.8 % (93.0-99.0); Arterial HCO3 13.5 mmol/L (22.0-26.0); Arterial MetHb 0.2 % (0.0-1.5); Arterial pCO2 23.6 mmhg (35-45); Blood Gas PS 10; MODE VENT - CPAP; Site Right Radial
[2018-09-27] MEDS ORDERED: VANCOMYCIN IV PER PHARMACY XX (14:30)
[2018-09-27 14:52] LABS: ADD UMIC YES; UR ASCORBIC ACID NEGATIVE (NEGATIVE); UR BACTERIA FEW /HPF (NONE SEEN); UR BILIRUBIN (Dip) NEGATIVE (NEGATIVE); UR BLOOD (Dip) 3+ mg/dL (NEGATIVE); UR CLARITY SLIGHTLY CLOUDY (CLEAR); UR COLOR YELLOW (YELLOW); UR GLUCOSE (Dip) NEGATIVE (NEGATIVE); UR KETONES (Dip) NEGATIVE (NEGATIVE); UR LEUKOCYTE ESTERASE (Dip) NEGATIVE Leu/ul (NEGATIVE); UR NITRITE (Dip) NEGATIVE (NEGATIVE); UR RBC 166 /HPF (0-5); UR TOTAL PROTEIN (Dip) NEGATIVE (NEGATIVE); UR UROBILINOGEN (Dip) NEGATIVE (NEGATIVE); UR WBC 13 /HPF (0-5)
[2018-09-27 15:08] LABS: CREATININE,URINE RANDOM 22.56 mg/dl (20-320)
[2018-09-27 15:08] LABS: SODIUM,URINE RANDOM 109 mmol/L (30-90)
[2018-09-27] MEDS: VANCOMYCIN 1 GM 250 ML IVPB (15:49)
[2018-09-27] MEDS: ATORVASTATIN 20 MG TAB PO (20:49)
[2018-09-27] MEDS: INSULIN GLARGINE [LANTus] (100 UNITS/ML) SYG SC (20:51)
[2018-09-28] MEDS: ACCU-CHEK XX (01:38)
[2018-09-28] MEDS: INSULIN ASPART [NOVOLOG] 3 ML PEN SC ×6 (01:40→20:27)
[2018-09-28 05:17] LABS: ADD MAN DIFF? NO
[2018-09-28 05:22] LABS: ABNORMAL IP MESSAGE 1; BASOPHIL # 0.1 10^3/ul (0.0-0.1); BASOPHILS % 0.6 % (0.0-2.0); EOSINOPHILS # 0.9 10^3/ul (0.0-0.5); EOSINOPHILS % 5.4 % (0.0-7.0); HEMATOCRIT 26.5 % (37.0-47.0); HEMOGLOBIN 8.5 g/dl (12.0-16.0); LYMPHOCYTES # 1.8 10^3/ul (0.8-2.9); LYMPHOCYTES % 10.7 % (15.0-51.0); MEAN CORPUSCULAR HEMOGLOBIN 27.8 pg (29.0-33.0); MEAN CORPUSCULAR HGB CONC 32.1 g/dl (32.0-37.0); MEAN CORPUSCULAR VOLUME 86.6 fl (82.0-101.0); MEAN PLATELET VOLUME 10.4 fl (7.4-10.4); MONOCYTE # 2.3 10^3/ul (0.3-0.9); MONOCYTES % 13.8 % (0.0-11.0); NEUTROPHILS % 64.6 % (39.0-77.0); NUCLEATED RED BLOOD CELLS% 6.1 /100WBC (0.0-0.0); PLATELET COUNT 535 10^3/UL (140-415); RED BLOOD COUNT 3.06 10^6/ul (4.20-5.40); RED CELL DISTRIBUTION WIDTH 17.4 % (11.5-14.5)
[2018-09-28 05:51] LABS: POSITIVE DIFF @See below
[2018-09-28 06:07] LABS: ANION GAP 11 (5-13); BLOOD UREA NITROGEN 50 mg/dl (7-20); CALCIUM 8.7 mg/dl (8.4-10.2); CARBON DIOXIDE 16 mmol/L (21-31); CHLORIDE 116 mmol/L (97-110); CREATININE 2.14 mg/dl (0.44-1.00); Estimated GFR 23 mL/min (>60); GLUCOSE 122 mg/dl (70-220); MAGNESIUM 2.5 mg/dl (1.7-2.5); PHOSPHORUS 4.2 mg/dl (2.5-4.9); POTASSIUM 3.4 mmol/L (3.5-5.1); SODIUM 143 mmol/L (135-144)
[2018-09-28] MEDS: PIPER-TAZO 3.375 GM IV (PMX) 100 ML IVPB ×3 (06:19→22:21)
[2018-09-28] MEDS: LEVOTHYROXINE 50 MCG TAB PO (06:19)
[2018-09-28] MEDS: LANSOPRAZOLE 30 MG CAP NGT (06:19)
[2018-09-28] MEDS: CLOPIDOGREL 75 MG TAB PO (08:16)
[2018-09-28] MEDS: POTASSIUM CHLORIDE 20 MEQ POWDER FOR ORAL SOLN GTB (08:16)
[2018-09-28] MEDS: ASPIRIN (EC) 81 MG TAB PO (08:16)
[2018-09-28] MEDS: DOCUSATE SODIUM 100 MG CAP PO (08:16)
[2018-09-28] MEDS: POLYETHYLENE GLYCOL 17 GM PACKET PO (08:17)
[2018-09-28] MEDS: CYANOCOBALAMIN 100 MCG TAB PO (08:18)
[2018-09-28] MEDS: ENOXAPARIN 60 MG/0.6 ML SYG SC (08:18)
[2018-09-28] MEDS: METOPROLOL 25 MG TAB PO ×2 (08:19→20:27)
[2018-09-28] MEDS: PROPOFOL 100 ML IV ×3 (08:28→22:21)
[2018-09-28 08:34] LABS: AADO2 Arterial 78.1 mmHg (7.0-24.0); Allen Test ACCEPTAB; Arterial Base Excess -9.3 mmol/L (-3.0-3); Arterial Blood Gas Oxygen Sat 98.1 mmHG (95.0-98.0); Arterial COHb 0 % (0.0-3.0); Arterial Fraction of Oxyhgb 97.9 % (93.0-99.0); Arterial HCO3 14.1 mmol/L (22.0-26.0); Arterial MetHb 0.2 % (0.0-1.5); Arterial pCO2 23.5 mmhg (35-45); MODE VENT - AC; Site Right Radial
[2018-09-28 11:06] LABS: AADO2 Arterial 87.1 mmHg (7.0-24.0); Allen Test ACCEPTAB; Arterial Base Excess -9.5 mmol/L (-3.0-3); Arterial Blood Gas Oxygen Sat 97.6 mmHG (95.0-98.0); Arterial COHb 0.1 % (0.0-3.0); Arterial Fraction of Oxyhgb 97.2 % (93.0-99.0); Arterial MetHb 0.3 % (0.0-1.5); Arterial pCO2 23.8 mmhg (35-45); Blood Gas PS 10; MODE VENT - CPAP; Site Right Radial
[2018-09-28] MEDS: SODIUM BICARBONATE (IV ADD) 100 MEQ in DEXTROSE 5%-0.45% NACL 900 ML IV (13:35)
[2018-09-28] MEDS: DOCUSATE SODIUM 10 MG/ML (10ML CUP) NGT (20:25)
[2018-09-28] MEDS: INSULIN GLARGINE [LANTus] (100 UNITS/ML) SYG SC (20:26)
[2018-09-28] MEDS: ATORVASTATIN 20 MG TAB PO (20:54)
[2018-09-29] MEDS: SODIUM BICARBONATE (IV ADD) 100 MEQ in DEXTROSE 5%-0.45% NACL 900 ML IV ×3 (00:31→13:59)
[2018-09-29] MEDS: INSULIN ASPART [NOVOLOG] 3 ML PEN SC ×6 (00:38→20:56)
[2018-09-29] MEDS: ACCU-CHEK XX (02:00)
[2018-09-29] MEDS: VANCOMYCIN 500 MG (PMX) 100 ML IVPB (04:40)
[2018-09-29 05:26] LABS: WHITE BLOOD COUNT 14.6 10^3/ul (4.8-10.8)
[2018-09-29 05:26] LABS: ABNORMAL IP MESSAGE 1; HEMATOCRIT 26.6 % (37.0-47.0); HEMOGLOBIN 8.6 g/dl (12.0-16.0); MEAN CORPUSCULAR HEMOGLOBIN 28.2 pg (29.0-33.0); MEAN CORPUSCULAR HGB CONC 32.3 g/dl (32.0-37.0); MEAN CORPUSCULAR VOLUME 87.2 fl (82.0-101.0); MEAN PLATELET VOLUME 10.6 fl (7.4-10.4); NUCLEATED RED BLOOD CELLS% 10.4 /100WBC (0.0-0.0); PLATELET COUNT 515 10^3/UL (140-415); RED BLOOD COUNT 3.05 10^6/ul (4.20-5.40); RED CELL DISTRIBUTION WIDTH 18.4 % (11.5-14.5)
[2018-09-29 05:31] LABS: ADD MAN DIFF? YES; POSITIVE DIFF @See below
[2018-09-29 05:47] LABS: ANION GAP 9 (5-13); BLOOD UREA NITROGEN 51 mg/dl (7-20); CALCIUM 8.3 mg/dl (8.4-10.2); CARBON DIOXIDE 19 mmol/L (21-31); CHLORIDE 115 mmol/L (97-110); CREATININE 2.32 mg/dl (0.44-1.00); Estimated GFR 21 mL/min (>60); GLUCOSE 181 mg/dl (70-220); MAGNESIUM 2.6 mg/dl (1.7-2.5); POTASSIUM 3.4 mmol/L (3.5-5.1); SODIUM 143 mmol/L (135-144)
[2018-09-29] MEDS: PIPER-TAZO 3.375 GM IV (PMX) 100 ML IVPB ×3 (06:25→22:00)
[2018-09-29] MEDS: LEVOTHYROXINE 50 MCG TAB PO (06:25)
[2018-09-29] MEDS: LANSOPRAZOLE 30 MG CAP NGT (06:25)
[2018-09-29] MEDS: POTASSIUM CHLORIDE 100 ML IVPB (07:02)
[2018-09-29 07:48] LABS: ANISOCYTOSIS 1+ (0-0); BAND NEUTROPHILS #M 0.4 10^3/ul (0.0-0.6); BAND NEUTROPHILS % (M) 3 % (0-4); BASOPHIL #M 0.1 10^3/ul (0.0-0.0); BASOPHILS % (M) 1 % (0-2); BURR CELLS 2+ (0-0); EOSINOPHILS % (M) 13 % (0-7); ERYTHROBLAST% (NRBC) (M) 18 % (0-0); GIANT THROMBO% (M) 5 % (0-0); LYMPHOCYTES #M 1.4 10^3/ul (0.8-2.9); LYMPHOCYTES % (M) 10 % (15-51); METAMYELOCYTES #M 0.1 10^3/ul (0.0-0.0); METAMYELOCYTES %M 1 % (0-0); MONOCYTES % (M) 7 % (0-11); MYELOCYTES #M 0.2 10^3/ul (0.0-0.0); MYELOCYTES % (M) 2 % (0-0); PLATELET ESTIMATE NORMAL; POIKILOCYTOSIS 2+ (0-0); POLYCHROMASIA 2+ (0-0); SEG NEUT #M 9.1 10^3/ul (1.6-7.5); SEGMENTED NEUTROPHILS (M) % 62 % (39-77); SMUDGE%M 5 % (0-0)
[2018-09-29] MEDS: POLYETHYLENE GLYCOL 17 GM PACKET PO (08:29)
[2018-09-29] MEDS: ASPIRIN (EC) 81 MG TAB PO (08:29)
[2018-09-29] MEDS: DOCUSATE SODIUM 10 MG/ML (10ML CUP) NGT ×2 (08:29→20:54)
[2018-09-29] MEDS: METOPROLOL 25 MG TAB PO ×2 (08:29→20:54)
[2018-09-29] MEDS: CYANOCOBALAMIN 100 MCG TAB PO (08:30)
[2018-09-29] MEDS: CLOPIDOGREL 75 MG TAB PO (08:30)
[2018-09-29] MEDS: ENOXAPARIN 60 MG/0.6 ML SYG SC (08:33)
[2018-09-29 11:45] LABS: AADO2 Arterial 76.7 mmHg (7.0-24.0); Allen Test ACCEPTAB; Arterial Base Excess -5.1 mmol/L (-3.0-3); Arterial Blood Gas Oxygen Sat 97.8 mmHG (95.0-98.0); Arterial COHb 0.2 % (0.0-3.0); Arterial Fraction of Oxyhgb 97.5 % (93.0-99.0); Arterial HCO3 18.5 mmol/L (22.0-26.0); Arterial MetHb 0.1 % (0.0-1.5); Arterial pCO2 29.6 mmhg (35-45); Blood Gas PS 10; MODE VENT - CPAP; Site Right Radial
[2018-09-29 15:22] LABS: CREATININE, RANDOM URINE 24 mg/dL (20-275); MICROALBUMIN/CREATININE RATIO 83 (<30)
[2018-09-29] MEDS: HYDROCODONE/APAP (5/325) TAB PO (16:24)
[2018-09-29] MEDS: EPOETIN ALFA-EPBX (NON-ESRD 10,000 UNIT/ML VIAL SC (18:18)
[2018-09-29] MEDS: INSULIN GLARGINE [LANTus] (100 UNITS/ML) SYG SC (20:52)
[2018-09-29] MEDS: ATORVASTATIN 20 MG TAB PO (20:54)
[2018-09-29] MEDS: ACETAMINOPHEN 325 MG TAB PO (20:58)
[2018-09-29] MEDS: ALPRAZOLAM 0.25 MG TAB PO (20:58)
[2018-09-29] MEDS: PROPOFOL 100 ML IV (20:59)
[2018-09-30] MEDS: INSULIN ASPART [NOVOLOG] 3 ML PEN SC ×4 (00:56→14:45)
[2018-09-30] MEDS: SODIUM BICARBONATE (IV ADD) 100 MEQ in DEXTROSE 5%-0.45% NACL 900 ML IV (01:38)
[2018-09-30] MEDS: ACCU-CHEK XX (02:00)
[2018-09-30 05:18] LABS: ADD MAN DIFF? NO
[2018-09-30 05:23] LABS: HEMATOCRIT 28.2 % (37.0-47.0); HEMOGLOBIN 9.2 g/dl (12.0-16.0); RED BLOOD COUNT 3.24 10^6/ul (4.20-5.40)
[2018-09-30 05:23] LABS: WHITE BLOOD COUNT 17.3 10^3/ul (4.8-10.8)
[2018-09-30 05:24] LABS: ABNORMAL IP MESSAGE 1; BASOPHIL # 0.1 10^3/ul (0.0-0.1); BASOPHILS % 0.8 % (0.0-2.0); EOSINOPHILS # 1.3 10^3/ul (0.0-0.5); EOSINOPHILS % 7.6 % (0.0-7.0); LYMPHOCYTES # 2.4 10^3/ul (0.8-2.9); LYMPHOCYTES % 13.8 % (15.0-51.0); MEAN CORPUSCULAR HEMOGLOBIN 28.4 pg (29.0-33.0); MEAN CORPUSCULAR HGB CONC 32.6 g/dl (32.0-37.0); MEAN PLATELET VOLUME 10.6 fl (7.4-10.4); MONOCYTE # 1.9 10^3/ul (0.3-0.9); NEUTROPHIL # 10.9 10^3/ul (1.6-7.5); NEUTROPHILS % 63.1 % (39.0-77.0); NUCLEATED RED BLOOD CELLS # 1.3 10^3/ul (0.0-0.0); NUCLEATED RED BLOOD CELLS% 7.4 /100WBC (0.0-0.0); PLATELET COUNT 589 10^3/UL (140-415)
[2018-09-30 05:40] LABS: POSITIVE DIFF @See below
[2018-09-30 05:45] LABS: ANION GAP 8 (5-13); BLOOD UREA NITROGEN 51 mg/dl (7-20); CALCIUM 8.5 mg/dl (8.4-10.2); CARBON DIOXIDE 23 mmol/L (21-31); CHLORIDE 115 mmol/L (97-110); CREATININE 2.29 mg/dl (0.44-1.00); Estimated GFR 21 mL/min (>60); GLUCOSE 116 mg/dl (70-220); MAGNESIUM 2.5 mg/dl (1.7-2.5); PHOSPHORUS 4.3 mg/dl (2.5-4.9); POTASSIUM 3.4 mmol/L (3.5-5.1); SODIUM 146 mmol/L (135-144)
[2018-09-30] MEDS: LANSOPRAZOLE 30 MG CAP NGT (06:09)
[2018-09-30] MEDS: PIPER-TAZO 3.375 GM IV (PMX) 100 ML IVPB ×2 (06:09→14:00)
[2018-09-30] MEDS: LEVOTHYROXINE 50 MCG TAB PO (06:10)
[2018-09-30] MEDS: SOD CHLORIDE 0.45% 1,000 ML IV (08:33)
[2018-09-30] MEDS: POTASSIUM CHLORIDE 100 ML IVPB ×2 (08:34→12:07)
[2018-09-30] MEDS: ASPIRIN 81 MG TAB GTB (08:38)
[2018-09-30] MEDS: DOCUSATE SODIUM 10 MG/ML (10ML CUP) NGT (08:39)
[2018-09-30] MEDS: CLOPIDOGREL 75 MG TAB PO (08:39)
[2018-09-30] MEDS: CYANOCOBALAMIN 100 MCG TAB PO (08:39)
[2018-09-30] MEDS: POLYETHYLENE GLYCOL 17 GM PACKET PO (08:41)
[2018-09-30] MEDS: METOPROLOL 25 MG TAB PO (08:41)
[2018-09-30] MEDS: HYDROCODONE/APAP (5/325) TAB PO (08:42)
[2018-09-30] MEDS: ENOXAPARIN 60 MG/0.6 ML SYG SC (08:44)
[2018-09-30] MEDS ORDERED: morphine 2 MG INJ IV (09:30)
[2018-09-30 11:09] LABS: CREATINE KINASE 24 IU/L (23-200)
[2018-09-30 11:19] LABS: CK INDEX 30.1; CK-MB 7.22 ng/ml (0.0-2.4)
[2018-09-30 11:27] LABS: TROPONIN-I 0.287 ng/ml (0.000-0.120)
[2018-09-30] MEDS ORDERED: morphine (DRIP) 100 MG/100 ML 100 ML IV (14:30)
[2018-09-30] MEDS: morphine (DRIP) 100 MG/100 ML 100 ML IV (15:06)
[2018-10-01] MEDS: morphine (DRIP) 100 MG/100 ML 100 ML IV (12:41)
[2018-10-01] MEDS: LORAZEPAM 2 MG INJ IV (18:24)
[2018-10-01] MEDS: SCOPOLAMINE 1.5 MG PATCH TRANSDERM (18:27)
[2018-10-02] MEDS: morphine (DRIP) 100 MG/100 ML 100 ML IV (06:43)
== END 2018-10-02 13:40 | disposition expired | DRG 207 ==
LOC: 2NE 09-04 09:51 → 5EC 09-07 20:25 → 6WM 09-14 14:14 → ICU 09-20 08:47 → MS1 10-01 02:00 → E/R 03:11 → 2NE 08-31 18:36 → TEL 06:16
PROC: 0FD13ZX Extraction of Right Lobe Liver, Percutaneous Approach, Diagnostic (ICD-10-PCS; 2018-09-11)
PROC: 5A1955Z Respiratory Ventilation, Greater than 96 Consecutive Hours (ICD-10-PCS; 2018-09-16)
PROC: 0W993ZX Drainage of Right Pleural Cavity, Percutaneous Approach, Diagnostic (ICD-10-PCS; 2018-09-16)
PROC: 30233N1 Transfusion of Nonautologous Red Blood Cells into Peripheral Vein, Percutaneous Approach (ICD-10-PCS; 2018-09-20)
PROC: 06HY33Z Insertion of Infusion Device into Lower Vein, Percutaneous Approach (ICD-10-PCS; 2018-09-20)
PROC: 5A12012 Performance of Cardiac Output, Single, Manual (ICD-10-PCS; 2018-09-20)
PROC: 0BH18EZ Insertion of Endotracheal Airway into Trachea, Via Natural or Artificial Opening Endoscopic (ICD-10-PCS; 2018-09-20)
PROC: 0B9N30Z Drainage of Right Pleura with Drainage Device, Percutaneous Approach (ICD-10-PCS; principal; 2018-09-24)
DX: C78.2 Secondary malignant neoplasm of pleura (principal); J96.01 Acute respiratory failure with hypoxia; G92 Toxic encephalopathy; J18.9 Pneumonia, unspecified organism; R65.21 Severe sepsis with septic shock; I21.4 Non-ST elevation (NSTEMI) myocardial infarction; A41.9 Sepsis, unspecified organism; R40.20 Unspecified coma; N17.0 Acute kidney failure with tubular necrosis; I50.31 Acute diastolic (congestive) heart failure; E44.0 Moderate protein-calorie malnutrition; J93.9 Pneumothorax, unspecified; C78.7 Secondary malignant neoplasm of liver and intrahepatic bile duct; E87.0 Hyperosmolality and hypernatremia; E87.4 Mixed disorder of acid-base balance; C55 Malignant neoplasm of uterus, part unspecified; E11.9 Type 2 diabetes mellitus without complications; I73.9 Peripheral vascular disease, unspecified; E03.9 Hypothyroidism, unspecified; E78.5 Hyperlipidemia, unspecified; K59.00 Constipation, unspecified; G47.00 Insomnia, unspecified; E87.6 Hypokalemia; F03.90 Unspecified dementia, unspecified severity, without behavioral disturbance, psychotic disturbance, mood disturbance, and anxiety; E87.5 Hyperkalemia; D50.9 Iron deficiency anemia, unspecified; I46.9 Cardiac arrest, cause unspecified; I25.10 Atherosclerotic heart disease of native coronary artery without angina pectoris; H70.90 Unspecified mastoiditis, unspecified ear; Z68.20 Body mass index [BMI] 20.0-20.9, adult; Z86.73 Personal history of transient ischemic attack (TIA), and cerebral infarction without residual deficits; Z79.84 Long term (current) use of oral hypoglycemic drugs
CPT/HCPCS: 31500; 36415; 36430; 36600; 70450; 71045; 71250; 72196; 74176; 74183; 75982; 76705; 76775; 76830; 76856; 76942; 76998; 77012; 78264; 78452; 80048; 80053; 80061; 81001; 81003; 82043; 82105; 82378; 82550; 82553; 82668; 82728; 82803; 82962; 83036; 83540; 83605; 83615; 83735; 83880; 83986; 84100; 84132; 84155; 84300; 84443; 84484; 85014; 85018; 85025; 85610; 85651; 85730; 86140; 86301; 86304; 86850; 86900; 86901; 86920; 87040-91; 87070; 87081; 87086; 87102; 87116; 88104; 88305; 88307; 88313; 89051; 92950; 93005; 93017; 93306; 93922; 93970; 94002; 94003; 94660; 94664; 94770; 95819; 96374; 96375; 97110; 97116; 97161; 97164; 97530; 99285-25